=== PATIENT | male | born 1965 | race Caucasian/White ===

== ENCOUNTER 2019-01-21 18:45 | Inpatient (IN) | payer OTHER ==
[2019-01-21] MEDS ORDERED: IPRATROPIUM-ALBUTEROL 3 ML NEB INHALATION STA (19:02)
[2019-01-21] MEDS ORDERED: SODIUM CHLORIDE 0.9% 500 ML 500 ML IV STA (19:18)
[2019-01-21] MEDS ORDERED: methylPREDNISolone SOD SUCCI 125 MG/2 ML VIAL IV STA (19:18)
[2019-01-21 19:53] LABS: Basophils % (A) 0 %; Eosinophils # (A) 0.2 k/uL (0-0.7); Eosinophils % (A) 1 %; HCT 48.4 % (39.0-53.0); Lymphocytes % (A) 8 %; MCHC 33.1 g/dL (31.0-37.0); MCV 93.9 fL (80.0-100.0); Mean Platelet Volume 7.3; Monocytes # (A) 0.9 k/uL (0-1.0); Monocytes % (A) 8 %; Neutrophils # (A) 10.3 k/uL (1.3-7.7); Neutrophils % (A) 82 %; Platelet Count 227 k/uL (150-450); RBC 5.16 m/uL (4.30-5.90); RDW 12.9 % (11.5-15.5); WBC 12.6 k/uL (3.8-10.6)
[2019-01-21 20:05] LABS: ALT 43 U/L (21-72); AST 25 U/L (17-59); Albumin 4.6 g/dL (3.5-5.0); Alkaline Phosphatase 62 U/L (38-126); Anion Gap 9 mmol/L; Blood Urea Nitrogen 23 mg/dL (9-20); Calcium 10.5 mg/dL (8.4-10.2); Carbon Dioxide 25 mmol/L (22-30); Chloride 106 mmol/L (98-107); Glucose 113 mg/dL (74-99); Potassium 4.7 mmol/L (3.5-5.1); Sodium 140 mmol/L (137-145); Total Protein 7.6 g/dL (6.3-8.2)
--- NOTE | 2019-01-21 20:10 | XR ---
EXAMINATION TYPE: XR chest 2V DATE OF EXAM: 01/21/2019 COMPARISON: NONE HISTORY: Short of breath TECHNIQUE: Frontal and lateral views of the chest are obtained. FINDINGS: Heart and mediastinum are normal. Lungs are clear. Diaphragm is normal. Bony thorax appear s normal. IMPRESSION: Normal chest
[2019-01-21 20:31] LABS: Partial Thromboplastin Time 24.7 sec (22.0-30.0); Prothrombin Time 10.3 sec (9.0-12.0)
--- NOTE | 2019-01-21 20:36 | ED ---
General Adult HPI <Oz Mejias - Last Filed: 01/21/19 20:55> - General Source: patient, RN notes reviewed, old records reviewed Mode of arrival: ambulatory Limitations: no limitations <Otilio Real - Last Filed: 01/21/19 23:43> - General Chief complaint: Upper Respiratory Infection Stated complaint: poss pneumonia Time Seen by Provider: 01/21/19 18:58 - History of Present Illness Initial comments: 53-year-old male patient past medical history of renal calculi, asthma, 25 year smoking history presents to ED with approximately 3 days of sore throat, rhinitis, nonproductive cough, shortness of breath, wheezing. Patient states that initially this began with sore throat, patient then began to progress to develop more cough, congestion, sob, wheezing. Patient states that this does feel like asthma exacerbations he has had in the past. Patient has had asthma exacerbations requiring hospital and in the past, most recently in the approximately 1999. Patient does not currently have a die sinker or have any breathing treatments at home. Patient denies any chest pain abdominal pain nausea vomiting diarrhea. Patient denies all other complaints. Systemic: Pt denies fatigue, myalgia, rash. Pt denies weakness, night sweats, weight loss. Neuro: Pt denies headache, visual disturbances, syncope or pre-syncope. HEENT: Pt denies ocular discharge or irritation, otalgia, rhinorrhea, pharyngiti s or notable lymphadenopathy. Cardiopulmonary: Pt denies chest pain, heart palpitations, dyspnea on exertion. Abdominal/GI: Pt denies abdominal pain, n/v/d. : Pt denies dysuria, burning w/ urination, frequency/urgency. Denies new onset urinary or bowel incontinence. MSK: Pt denies myalgia, loss of strength or function in extremities. Neuro: Pt denies new onset weakness, paresthesias. (Otilio Real) - Related Data Home Medications Medication Instructions Recorded Confirmed Multivit-Min/FA/Lycopen/Lutein 1 tab PO DAILY 01/21/19 01/21/19 [Centrum Silver Men Tablet] Allergies Allergy/AdvReac Type Severity Reaction Status Date / Time No Known Allergies Allergy Verified 01/21/19 19:57 Review of Systems ROS Other: All systems not noted in ROS Statement are negative. <Oz Mejias - Last Filed: 01/21/19 20:55> ROS Other: All systems not noted in ROS Statement are negative. <Otilio Real - Last Filed: 01/21/19 23:43> ROS Statement: Those systems with pertinent positive or pertinent negative responses have been documented in the HPI. Past Medical History Past Medical History: Prostate Disorder History of Any Multi-Drug Resistant Organisms: None Reported Past Surgical History: No Surgical Hx Reported Past Psychological History: No Psychological Hx Reported Smoking Status: Former smoker Past Alcohol Use History: None Reported <Otilio Real - Last Filed: 01/21/19 23:43> General Exam <Oz Mejias - Last Filed: 01/21/19 20:55> Limitations: no limitations <Otilio Real - Last Filed: 01/21/19 23:43> - General Exam Comments Initial Comments: Constitutional: NAD, AOX3, Pt has pleasant affect. HEENT: NC/AT, trachea midline, neck supple, no lymphadenopathy. Posterior pharynx non erythematous, without exudates. External ears appear normal, without discharge. Mucous membranes moist. Eyes PERRLA, EOM intact. There is no scleral icterus. No pallor noted. Cardiopulmonary: RRR, no murmurs, rubs or gallops, no JVD noted. Wheezing noted in anterior and posterior og. Mildly improved but still present after breathing treatment. No peripheral edema. Abdominal exam: Abdomen soft and non-distended. Abdomen non-tender to palpation in all 4 quadrants. Bowel sounds active in LLQ. No hepatosplenomegaly. No ecchymosis Neuro: CN II-XII grossly intact. No nuchal rigidity. MSK: No posterior calf tenderness bilaterally, homans sign negative bilaterally. Posterior tibialis and radial pulse +2 bilaterally. Sensation intact in upper and lower extremities. Full active ROM in upper and lower extremities, 5/5 stregnth. (Otilio Real) Vital Signs 01/21/19 01/21/19 01/21/19 18:46 18:58 19:18 Temperature 98.7 F Pulse Rate 108 H 100 Respiratory 24 22 Rate Blood Pressure 157/91 O2 Sat by Pulse 89 L Oximetry 01/21/19 01/21/19 01/21/19 19:35 19:36 20:36 Temperature Pulse Rate 117 H 114 H 99 Respiratory 22 20 Rate Blood Pressure 138/87 143/99 O2 Sat by Pulse 90 L 93 L Oximetry Medical Decision Making - Lab Data Result diagrams: 01/21/19 19:30 01/21/19 19:30 <Oz Mejias - Last Filed: 01/21/19 20:55> - Lab Data Result diagrams: 01/21/19 19:30 01/21/19 19:30 - EKG Data -: EKG Interpreted by Me (and dr mejias) <Otilio Real - Last Filed: 01/21/19 23:43> - Medical Decision Making Patient reevaluated by myself, Dr. Mejias. Patient is having some continued wheezing however no respiratory distress at this time. Patient feels somewhat better following nebulizer treatments. Case was discussed in detail with Dr. Phepls, who will admit his patient. (Oz Mejias) 53-year-old male patient past medical history of renal calculi, asthma, 25 year smoking history presents to ED with approximately 3 days of sore throat, rhinitis, nonproductive cough, shortness of breath, wheezing. Patient states that initially this began with sore throat, patient then began to progress to develop more cough, congestion, sob, wheezing. Patient states that this does feel like asthma exacerbations he has had in the past. Patient has had asthma exacerbations requiring hospital and in the past, most recently in the approximately 1999. Patient does not currently have a die sinker or have any breathing treatments at home. Patient denies any chest pain abdominal pain nausea vomiting diarrhea. Patient denies all other complaints. Patient vital signs displayed mild tachycardia, O2 saturation in low 90's. Physical exam displayed: Wheezing noted in anterior and posterior og. Mildly improved but still present after breathing treatment. Laboratory investigations revealed mi ld cytosis of 12.6. Coagulation studies within normal limits. D-dimer negative. CMP nonimpressive. Troponin negative. BNP wnl. Influenza negative. Chest x-ray displayed no acute intrapulmonary process. EKG displayed sinus tachycardia. Patient proved moderately with breathing treatment. Patient to be admitted for asthma exacerbation. Patient placed on prophylactic azithromycin. Case discussed and patient seen by Dr. Mejias. (Otilio Real) - Lab Data Lab Results 01/21/19 01/21/19 01/21/19 Range/Units 19:30 19:30 19:30 WBC 12.6 H (3.8-10.6) k/uL RBC 5.16 (4.30-5.90) m/uL Hgb 16.0 (13.0-17.5) gm/dL Hct 48.4 (39.0-53.0) % MCV 93.9 (80.0-100.0) fL MCH 31.0 (25.0-35.0) pg MCHC 33.1 (31.0-37.0) g/dL RDW 12.9 (11.5-15.5) % Plt Count 227 (150-450) k/uL Neutrophils % 82 % Lymphocytes % 8 % Monocytes % 8 % Eosinophils % 1 % Basophils % 0 % Neutrophils # 10.3 H (1.3-7.7) k/uL Lymphocytes # 1.0 (1.0-4.8) k/uL Monocytes # 0.9 (0-1.0) k/uL Eosinophils # 0.2 (0-0.7) k/uL Basophils # 0.0 (0-0.2) k/uL PT (9.0-12.0) sec INR (<1.2) APTT (22.0-30.0) sec D-Dimer (<0.60) mg/L FEU Sodium 140 (137-145) mmol/L Potassium 4.7 (3.5-5.1) mmol/L Chloride 106 (98-107) mmol/L Carbon Dioxide 25 (22-30) mmol/L Anion Gap 9 mmol/L BUN 23 H (9-20) mg/dL Creatinine 0.75 (0.66-1.25) mg/dL Est GFR (CKD-EPI)AfAm >90 (>60 ml/min/1.73 sqM) Est GFR (CKD-EPI)NonAf >90 (>60 ml/min/1.73 sqM) Glucose 113 H (74-99) mg/dL Calcium 10.5 H (8.4-10.2) mg/dL Total Bilirubin 1.0 (0.2-1.3) mg/dL AST 25 (17-59) U/L ALT 43 (21-72) U/L Alkaline Phosphatase 62 (38-126) U/L Troponin I (0.000-0.034) ng/mL NT-Pro-B Natriuret Pep 56 pg/mL Total Protein 7.6 (6.3-8.2) g/dL Albumin 4.6 (3.5-5.0) g/dL Influenza Type A RNA (Not Detectd) Influenza Type B (PCR) (Not Detectd) 01/21/19 01/21/19 01/21/19 Range/Units 19:30 19:30 19:30 WBC (3.8-10.6) k/uL RBC (4.30-5.90) m/uL Hgb (13.0-17.5) gm/dL Hct (39.0-53.0) % MCV (80.0-100.0) fL MCH (25.0-35.0) pg MCHC (31.0-37.0) g/dL RDW (11.5-15.5) % Plt Count (150-450) k/uL Neutrophils % % Lymphocytes % % Monocytes % % Eosinophils % % Basophils % % Neutrophils # (1.3-7.7) k/uL Lymphocytes # (1.0-4.8) k/uL Monocytes # (0-1.0) k/uL Eosinophils # (0-0.7) k/uL Basophils # (0-0.2) k/uL PT 10.3 (9.0-12.0) sec INR 1.0 (<1.2) APTT 24.7 (22.0-30.0) sec D-Dimer 0.25 (<0.60) mg/L FEU Sodium (137-145) mmol/L Potassium (3.5-5.1) mmol/L Chloride (98-107) mmol/L Carbon Dioxide (22-30) mmol/L Anion Gap mmol/L BUN (9-20) mg/dL Creatinine (0.66-1.25) mg/dL Est GFR (CKD-EPI)AfAm (>60 ml/min/1.73 sqM) Est GFR (CKD-EPI)NonAf (>60 ml/min/1.73 sqM) Glucose (74-99) mg/dL Calcium (8.4-10.2) mg/dL Total Bilirubin (0.2-1.3) mg/dL AST (17-59) U/L ALT (21-72) U/L Alkaline Phosphatase (38-126) U/L Troponin I <0.012 (0.000-0.034) ng/mL NT-Pro-B Natriuret Pep pg/mL Total Protein (6.3-8.2) g/dL Albumin (3.5-5.0) g/dL Influenza Type A RNA (Not Detectd) Influenza Type B (PCR) (Not Detectd) 01/21/19 Range/Units 20:20 WBC (3.8-10.6) k/uL RBC (4.30-5.90) m/uL Hgb (13.0-17.5) gm/dL Hct (39.0-53.0) % MCV (80.0-100.0) fL MCH (25.0-35.0) pg MCHC (31.0-37.0) g/dL RDW (11.5-15.5) % Plt Count (150-450) k/uL Neutrophils % % Lymphocytes % % Monocytes % % Eosinophils % % Basophils % % Neutrophils # (1.3-7.7) k/uL Lymphocytes # (1.0-4.8) k/uL Monocytes # (0-1.0) k/uL Eosinophils # (0-0.7) k/uL Basophils # (0-0.2) k/uL PT (9.0-12.0) sec INR (<1.2) APTT (22.0-30.0) sec D-Dimer (<0.60) mg/L FEU Sodium (137-145) mmol/L Potassium (3.5-5.1) mmol/L Chloride (98-107) mmol/L Carbon Dioxide (22-30) mmol/L Anion Gap mmol/L BUN (9-20) mg/dL Creatinine (0.66-1.25) mg/dL Est GFR (CKD-EPI)AfAm (>60 ml/min/1.73 sqM) Est GFR (CKD-EPI)NonAf (>60 ml/min/1.73 sqM) Glucose (74-99) mg/dL Calcium (8.4-10.2) mg/dL Total Bilirubin (0.2-1.3) mg/dL AST (17-59) U/L ALT (21-72) U/L Alkaline Phosphatase (38-126) U/L Troponin I (0.000-0.034) ng/mL NT-Pro-B Natriuret Pep pg/mL Total Protein (6.3-8.2) g/dL Albumin (3.5-5.0) g/dL Influenza Type A RNA Not Detected (Not Detectd) Influenza Type B (PCR) Not Detected (Not Detectd) - EKG Data EKG Comments: Ventricular rate 106, MT interval 140, QRS 88, QT/QTC 314/417. Sinus tachycardia. Left axis deviation. No concern for acute ischemia. (Otilio Real) Disposition <Oz Mejias - Last Filed: 01/21/19 20:55> Is patient prescribed a controlled substance at d/c from ED?: No <Otilio Real - Last Filed: 01/21/19 23:43> Clinical Impression: Asthma exacerbation Disposition: ADMITTED IP TO THIS HOSP Condition: Serious
[2019-01-21] MEDS ORDERED: IPRATROPIUM-ALBUTEROL 3 ML NEB INHALATION PRN (21:21)
[2019-01-21] MEDS: AZITHROMYCIN 500 MG TAB PO SCH (22:00)
[2019-01-21 22:36] VITALS: BMI 28.8
[2019-01-22] MEDS: methylPREDNISolone SOD SUCCI 125 MG/2 ML VIAL IV SCH ×4 (00:24→16:55)
[2019-01-22 07:09] LABS: Glucose,Whole Blood 178 mg/dL (75-99)
[2019-01-22] MEDS: IPRATROPIUM-ALBUTEROL 3 ML NEB INHALATION SCH ×4 (08:04→19:37)
[2019-01-22] MEDS: AZITHROMYCIN 500 MG TAB PO SCH (08:44)
[2019-01-22 11:15] LABS: Glucose,Whole Blood 216 mg/dL (75-99)
[2019-01-22] MEDS: INSULIN ASPART (NovoLOG) 100 UNIT/ML VIAL SQ SCH ×3 (11:47→22:05)
--- NOTE | 2019-01-22 13:21 | P.CNPUL ---
History of Present Illness Consult date: 01/22/19 Requesting physician: Gee Cage Jr Reason for consult: dyspnea Chief complaint: Shortness of breath History of present illness: This is a very pleasant 53-year-old gentleman who follows with Dr. Cage is his primary care physician. He presented to the emergency room with initial complaints of sore throat and burning that subsequently settled into his chest over the last 2-3 days. He is quite dyspneic on minimal exertion. Some chest tightness and wheezing. Chest x-ray showed no acute pulmonary process. White count 12.6. Hemoglobin 16.0. Creatinine 0.75. Influenza screen negative. He states he did have asthma as a child and then it returned once in his 30s he had been admitted at that time. He does have chronic and ongoing tobacco dependence. He remembers being on Advair for a while after a previous admission many years ago. No current inhalers, no home oxygen. He is seen today in consultation on the regular medical floor. He is awake and alert in no acute distress. He is still somewhat bronchospastic and wheezy. Still dyspneic with conversation and minimal exertion. He is requiring oxygen at 3 L/m to maintain O2 saturations in the 90s. Initially 89% on room air. He has been initiated on DuoNeb inhalations and IV Solu-Medrol with empiric antibiotics in the form of azithromycin. Review of Systems 14 point review of system was conducted. All negative other than as mentioned in HPI. Eyes: Past Medical History Past Medical History: Prostate Disorder History of Any Multi-Drug Resistant Organisms: None Reported Past Surgical History: No Surgical Hx Reported Past Anesthesia/Blood Transfusion Reactions: No Reported Reaction Past Psychological History: No Psychological Hx Reported Smoking Status: Former smoker Past Alcohol Use History: None Reported - Past Family History Mother Family Medical History: Diabetes Mellitus Father Family Medical History: Coronary Artery Disease (CAD) Medications and Allergies Home Medications Medication Instructions Recorded Confirmed Type Multivit-Min/FA/Lycopen/Lutein 1 tab PO DAILY 01/21/19 01/21/19 History [Centrum Silver Men Tablet] Allergies Allergy/AdvReac Type Severity Reaction Status Date / Time No Known Allergies Allergy Verified 01/21/19 19:57 Physical Exam Vitals: Vital Signs Temp Pulse Pulse Resp BP BP Pulse Ox 01/22/19 11:42 92 01/22/19 11:31 88 01/22/19 08:18 88 01/22/19 08:05 84 92 L 01/22/19 06:03 98.0 F 83 20 132/85 92 L 01/21/19 22:40 99.2 F 91 22 158/82 90 L 01/21/19 22:01 98.6 F 89 18 136/92 93 L 01/21/19 20:36 99 20 143/99 93 L 01/21/19 19:36 114 H 22 138/87 90 L 01/21/19 19:35 117 H 01/21/19 19:18 100 01/21/19 18:58 22 01/21/19 18:46 98.7 F 108 H 24 157/91 89 L Intake and Output 01/21/19 01/22/19 01/22/19 22:59 06:59 14:59 Other: Voiding Method Toilet # Voids 2 Weight 102.058 kg GENERAL EXAM: 53-year-old male patient. Alert, active, comfortable in no apparent distress. On 3 L nasal cannula. HEAD: Normocephalic. EYES: Normal reaction of pupils, equal size. NOSE: Clear with pink turbinates. THROAT: No erythema or exudates. NECK: No masses, no JVD. CHEST: No chest wall deformity. LUNGS: Equal air entry with bilateral wheezing, few scattered rhonchi, diminished. CVS: S1 and S2 normal with no audible murmur, regular rhythm. ABDOMEN: No hepatosplenomegaly, normal bowel sounds, no guarding or rigidity. SPINE: No scoliosis or deformity SKIN: No rashes CENTRAL NERVOUS SYSTEM: No focal deficits, tone is normal in all 4 extremities. EXTREMITIES: There is no peripheral edema. No clubbing, no cyanosis. Peripher al pulses are intact. Results - Laboratory Findings CBC and BMP: 01/21/19 19:30 01/21/19 19:30 PT/INR, D-dimer PT 10.3 sec (9.0-12.0) 01/21/19 19:30 INR 1.0 (<1.2) 01/21/19 19:30 D-Dimer 0.25 mg/L FEU (<0.60) 01/21/19 19:30 Abnormal lab findings: Abnormal Labs 03/06/19 03/06/19 03/07/19 19:30 19:30 07:01 WBC 12.6 H Neutrophils # 10.3 H BUN 23 H Glucose 113 H POC Glucose (mg/dL) 178 H Calcium 10.5 H 01/22/19 11:13 WBC Neutrophils # BUN Glucose POC Glucose (mg/dL) 216 H Calcium - Diagnostic Findings Chest x-ray: image reviewed (No acute pulmonary process) Assessment and Plan Assessment: Impression: #1 Acute hypoxic respiratory failure secondary to an acute exacerbation of mild persistent chronic bronchial asthma and suspected acute exacerbation of chronic obstructive pulmonary disease. #2 Chronic and ongoing tobacco dependence. Plan: The patient was seen and evaluated by Dr. Aviles. Chest x-ray and labs were reviewed. We'll continue with DuoNeb inhalations, IV Solu-Medrol, empiric antibiotics in the form of azithromycin. Add Pulmicort and Perforomist inhalations twice a day. NicoDerm patch. He is educated regarding the importance of complete smoking cessation. We will increase his activity as tolerated. Titrate down the FiO2 as tolerated. We'll continue to follow make further recommendations based on his clinical status. Possible discharge in the a.m. I, the cosigning physician, performed a history & physical examination of the patient. Lungs sounds with bilateral end expiratory wheeze, few scattered rhonchi, diminished. Maintaining good O2 saturations in the 90s on 3 L/m per nasal cannula. I discussed the assessment and plan of care with my nurse practitioner, Martha Crump. I attest to the above consultation as dictated by her. Time with Patient: Greater than 30
[2019-01-22 16:45] LABS: Glucose,Whole Blood 169 mg/dL (75-99)
[2019-01-22] MEDS: FORMOTEROL FUMARATE 20 MCG/2 ML NEBU INHALATION SCH (19:37)
[2019-01-22] MEDS: BUDESONIDE 1 MG/2 ML NEBU INHALATION SCH (19:37)
[2019-01-22 20:27] LABS: Glucose,Whole Blood 183 mg/dL (75-99)
[2019-01-23] MEDS: methylPREDNISolone SOD SUCCI 125 MG/2 ML VIAL IV SCH ×3 (00:07→12:49)
[2019-01-23 07:23] LABS: Glucose,Whole Blood 150 mg/dL (75-99)
[2019-01-23] MEDS: IPRATROPIUM-ALBUTEROL 3 ML NEB INHALATION SCH ×4 (08:08→20:51)
[2019-01-23] MEDS: FORMOTEROL FUMARATE 20 MCG/2 ML NEBU INHALATION SCH ×2 (08:08→20:50)
[2019-01-23] MEDS: BUDESONIDE 1 MG/2 ML NEBU INHALATION SCH ×2 (08:08→20:50)
[2019-01-23] MEDS: INSULIN ASPART (NovoLOG) 100 UNIT/ML VIAL SQ SCH ×4 (08:38→21:02)
[2019-01-23] MEDS: AZITHROMYCIN 500 MG TAB PO SCH (08:41)
[2019-01-23 11:52] LABS: Glucose,Whole Blood 144 mg/dL (75-99)
[2019-01-23] MEDS ORDERED: MULTIVITAMINS, THERA 1 EACH TAB PO SCH (12:00)
--- NOTE | 2019-01-23 12:28 | P.PN ---
Subjective Progress Note Date: 01/23/19 Principal diagnosis: Acute hypoxic respiratory failure secondary to an acute exacerbation of COPD/asthma This is a very pleasant 53-year-old gentleman who follows with Dr. Cage is his primary care physician. He presented to the emergency room with initial complaints of sore throat and burning that subsequently settled into his chest over the last 2-3 days. He is quite dyspneic on minimal exertion. Some chest tightness and wheezing. Chest x-ray showed no acute pulmonary process. White count 12.6. Hemoglobin 16.0. Creatinine 0.75. Influenza screen negative. He states he did have asthma as a child and then it returned once in his 30s he had been admitted at that time. He does have chronic and ongoing tobacco dependence. He remembers being on Advair for a while after a previous admission many years ago. No current inhalers, no home oxygen. He is seen today in consultation on the regular medical floor. He is awake and alert in no acute distress. He is still somewhat bronchospastic and wheezy. Still dyspneic with conversation and minimal exertion. He is requiring oxygen at 3 L/m to maintain O2 saturations in the 90s. Initially 89% on room air. He has been initiated on DuoNeb inhalations and IV Solu-Medrol with empiric antibiotics in the form of azithromycin. The patient is seen today 01/23/2019 in follow-up on the regular medical floor. He is awake and alert in no acute distress. He is breathing quite a bit easier today as compared to yesterday. Still not quite back to his baseline. He is maintaining O2 saturations in the mid 90s on 2 L/m per nasal cannula. He's been afebrile. Hemodynamically stable. Blood culture reveals no growth to date. He is continued on DuoNeb inhalations, Pulmicort and Perforomist inhalations, IV Solu-Medrol, empiric Biaxin the form of azithromycin. Objective - Vital Signs Vital signs: Vital Signs Temp 98.2 F 01/23/19 05:00 Pulse 84 01/23/19 08:32 Resp 16 01/23/19 08:00 BP 103/61 01/23/19 05:00 Pulse Ox 95 01/23/19 05:00 Intake & Output 01/22/19 01/23/19 01/23/19 18:59 06:59 18:59 Intake Total 1180 Balance 1180 Intake: Oral 1180 Other: Voiding Method Toilet # Voids 2 2 - Exam GENERAL EXAM: Alert, active, comfortable in no apparent distress. HEAD: Normocephalic. EYES: Normal reaction of pupils, equal size. NOSE: Clear with pink turbinates. THROAT: No erythema or exudates. NECK: No masses, no JVD. CHEST: No chest wall deformity. LUNGS: Equal air entry with faint end expiratory wheeze bilaterally. Diminished. CVS: S1 and S2 normal with no audible murmur, regular rhythm. ABDOMEN: No hepatosplenomegaly, normal bowel sounds, no guarding or rigidity. SPINE: No scoliosis or deformity SKIN: No rashes CENTRAL NERVOUS SYSTEM: No focal deficits, tone is normal in all 4 extremities. EXTREMITIES: There is no peripheral edema. No clubbing, no cyanosis. Peripheral pulses are intact. - Labs CBC & Chem 7: 01/21/19 19:30 01/21/19 19:30 Labs: Abnormal Lab Results - Last 24 Hours (Table) 01/22/19 01/22/19 01/23/19 Range/Units 16:43 20:26 07:22 POC Glucose (mg/dL) 169 H 183 H 150 H (75-99) mg/dL 01/23/19 Range/Units 11:42 POC Glucose (mg/dL) 144 H (75-99) mg/dL Microbiology - Last 24 Hours (Table) 01/21/19 21:54 Blood Culture - Preliminary Blood No Growth after 24 hours Assessment and Plan Assessment: Impression: #1 Acute hypoxic respiratory failure secondary to an acute exacerbation of mild persistent chronic bronchial asthma and suspected acute exacerbation of chronic obstructive pulmonary disease. #2 Chronic and ongoing tobacco dependence. Plan: The patient was seen and evaluated by Dr. Aviles. He is cleared for discharge from the pulmonary standpoint. We'll convert the IV Solu-Medrol to prednisone burst and taper. Continue Symbicort and albuterol. Wean off the oxygen. He would benefit from a follow-up in our office in 1-2 weeks' time. We'll perform full pulmonary function testing to evaluate the severity of his chronic obstructive pulmonary disease. He is again encouraged regarding the importance of complete smoking cessation. He is encouraged to call sooner with any recurrence of symptoms or other questions or concerns. I, the cosigning physician, performed a history & physical examination of the patient. Lungs sounds with bilateral end expiratory wheeze, diminished. Maintaining good O2 saturations in the 90s on 2 L/m per nasal cannula. I discussed the assessment and plan of care with my nurse practitioner, Martha Crump. I attest to the above note as dictated by her.
[2019-01-23 17:05] LABS: Glucose,Whole Blood 121 mg/dL (75-99)
--- NOTE | 2019-01-23 17:48 | P.HPIM ---
History of Present Illness H&P Date: 01/22/19 Chief Complaint: Dyspnea Patient presented to the hospital lidocaine exacerbation of chronic COPD patient was unable to catch breath, having difficulty taking deep breaths, This patient is a 53-year-old male with a past medical history of asthma 25 year smoking patient did present with sore throat rhinitis nonproductive cough he has early signs of chronic obstructive lung disease secondary to smoking history was currently wheezing when I evaluated him in the patient room on the floor. He was given 2 updraft treatments in the emergency room out improvement of symptoms was started on IV steroids and IV antibiotics and short acting beta agonist treatments nebulized Review of Systems Constitutional: Reports as per HPI Cardiovascular: Reports as per HPI Respiratory: Reports congestion, Reports cough, Reports dyspnea, Reports wheezing Gastrointestinal: Reports as per HPI Genitourinary: Reports as per HPI Musculoskeletal: Reports as per HPI Integumentary: Reports as per HPI Neurological: Reports as per HPI Psychiatric: Reports as per HPI Past Medical History Past Medical History: Prostate Disorder, Respiratory Disorder History of Any Multi-Drug Resistant Organisms: None Reported Past Surgical History: No Surgical Hx Reported Past Anesthesia/Blood Transfusion Reactions: No Reported Reaction Past Psychological History: No Psychological Hx Reported Smoking Status: Former smoker Past Alcohol Use History: None Reported - Past Family History Mother Family Medical History: Diabetes Mellitus Father Family Medical History: Coronary Artery Disease (CAD) Medications and Allergies Home Medications Medication Instructions Recorded Confirmed Type Multivit-Min/FA/Lycopen/Lutein 1 tab PO DAILY 01/21/19 01/21/19 History [Centrum Silver Men Tablet] Allergies Allergy/AdvReac Type Severity Reaction Status Date / Time No Known Allergies Allergy Verified 01/21/19 19:57 Physical Exam Osteopathic Statement: *. No significant issues noted on an osteopathic structural exam other than those noted in the History and Physical/Consult. Vitals: Vital Signs Temp Pulse Pulse Resp BP Pulse Ox Pulse Ox 01/23/19 16:46 84 01/23/19 16:36 80 01/23/19 15:49 18 01/23/19 13:54 97.7 F 90 18 125/44 92 L 01/23/19 12:49 91 L 01/23/19 12:45 82 01/23/19 12:37 88 01/23/19 08:32 84 01/23/19 08:20 88 01/23/19 08:08 90 01/23/19 08:00 83 16 01/23/19 05:00 98.2 F 83 16 103/61 95 01/22/19 21:00 98.2 F 107 H 16 132/75 92 L 01/22/19 20:03 92 01/22/19 19:53 92 01/22/19 19:52 92 01/22/19 19:38 88 Pulse Ox Pulse Ox 01/23/19 16:46 01/23/19 16:36 01/23/19 15:49 01/23/19 13:54 01/23/19 12:49 91 L 88 L 01/23/19 12:45 01/23/19 12:37 01/23/19 08:32 01/23/19 08:20 01/23/19 08:08 01/23/19 08:00 01/23/19 05:00 01/22/19 21:00 01/22/19 20:03 01/22/19 19:53 01/22/19 19:52 01/22/19 19:38 Intake and Output 01/23/19 01/23/19 01/23/19 06:59 14:59 22:59 Intake Total 590 Balance 590 Intake: Oral 590 Other: Voiding Method Toilet Toilet # Voids 2 4 General: [Patient awake, alert and oriented times 3. Patient in no acute distress.] HEENT: [PERRL. EOMI. No pharyngeal erythema or exudate.] Neck: [No adenopathy.] Cardiac: [Heart regular in rate and rhythm. No S3. No S4. No clicks, rubs. No murmur.] Lungs: Diminished breath sounds bilaterally with profound expirational wheezes bilaterally Abdomen: [No mass. No organomegaly. Bowel sounds presnt and normoactive in all 4 quadrants.] Extremes: [No edema no cyanosis no claudication normal pulses] : [] Musculoskeletal: [No joint erythema, edema or tenderness.] Skin: [No rash.] Neurologic: [No lateralizing deficits. CN II - XII grossly intact.] Lymphatic: [No adenopathy.] Results CBC & Chem 7: 01/21/19 19:30 01/21/19 19:30 Labs: Abnormal Lab Results - Last 24 Hours (Table) 01/22/19 01/23/1901/23/19 Range/Units 20:26 07:22 11:42 POC Glucose (mg/dL) 183 H 150 H 144 H (75-99) mg/dL 01/23/19 Range/Units 16:59 POC Glucose (mg/dL) 121 H (75-99) mg/dL Microbiology - Last 24 Hours (Table) 01/21/19 21:54 Blood Culture - Preliminary Blood No Growth after 24 hours Thrombosis Risk Factor Assmnt - DVT/VTE Prophylaxis DVT/VTE Prophylaxis: Low risk, early ambulation encouraged - Choose All That Apply Any of the Below Risk Factors Present?: Yes Each Factor Represents 1 point: Age 41-60 years Other Risk Factors: No Thrombosis Risk Factor Assessment Total Risk Factor Score: 1 Thrombosis Risk Factor Assessment Level: Low Risk Assessment and Plan Assessment: Acute exacerbation chronic COPD IV steroids, IV antibiotics, nebulized beta agonists Consultation with pulmonary medicine We will continue to follow patient closely with anticipate discharge home and 48 hours (1) Asthma exacerbation Current Visit: Yes Status: Acute Code(s): J45.901 - UNSPECIFIED ASTHMA WITH (ACUTE) EXACERBATION SNOMED Code(s): 510975913 Time with Patient: Greater than 30
--- NOTE | 2019-01-23 17:51 | P.PN ---
Subjective Progress Note Date: 01/23/19 Principal diagnosis: Acute exacerbation of chronic asthma/COPD Patient was admitted yesterday was examined last evening had profound consolidation bilaterally with diminished breath sounds and bilateral wheezes this has improved patient was started on by mouth prednisone by a pulmonary medicine. We will reevaluate tomorrow anticipate discharge home tomorrow Objective - Vital Signs Vital signs: Vital Signs Temp 97.7 F 01/23/19 13:54 Pulse 84 01/23/19 16:46 Resp 18 01/23/19 15:49 BP 125/44 01/23/19 13:54 Pulse Ox 92 L 01/23/19 13:54 Intake & Output 01/22/19 01/23/19 01/23/19 18:59 06:59 18:59 Intake Total 1180 Balance 1180 Intake: Oral 1180 Other: Voiding Method Toilet # Voids 2 2 4 - Exam General: [Patient awake, alert and oriented times 3. Patient in no acute distress.] HEENT: [PERRL. EOMI. No pharyngeal erythema or exudate.] Neck: [No adenopathy.] Cardiac: [Heart regular in rate and rhythm. No S3. No S4. No clicks, rubs. No murmur.] Lungs: Breath sounds improved, bilateral expiration wheezes persist Abdomen: [No mass. No organomegaly. Bowel sounds presnt and normoactive in all 4 quadrants.] Extremes: [No edema no cyanosis no claudication normal pulses] : [] Musculoskeletal: [No joint erythema, edema or tenderness.] Skin: [No rash.] Neurologic: [No lateralizing deficits. CN II - XII grossly intact.] Lymphatic: [No adenopathy.] - Labs CBC & Chem 7: 01/21/19 19:30 01/21/19 19:30 Labs: Abnormal Lab Results - Last 24 Hours (Table) 01/22/19 01/23/19 01/23/19 Range/Units 20:26 07:22 11:42 POC Glucose (mg/dL) 183 H 150 H 144 H (75-99) mg/dL 01/23/19 Range/Units 16:59 POC Glucose (mg/dL) 121 H (75-99) mg/dL Microbiology - Last 24 Hours (Table) 01/21/19 21:54 Blood Culture - Preliminary Blood No Growth after 24 hours Assessment and Plan Assessment: Acute exacerbation chronic COPD IV steroids, IV antibiotics, nebulized beta agonists Consultation with pulmonary medicine We will continue to follow patient closely with anticipate discharge home and 24 hours (1) Asthma exacerbation Current Visit: Yes Status: Acute Code(s): J45.901 - UNSPECIFIED ASTHMA WITH (ACUTE) EXACERBATION SNOMED Code(s): 687293361 Time with Patient: Greater than 30
[2019-01-23 20:25] LABS: Glucose,Whole Blood 142 mg/dL (75-99)
[2019-01-23] MEDS ORDERED: MONTELUKAST 10 MG TAB PO SCH (21:00)
[2019-01-24 05:09] VITALS: BP 119/59; RESP 18; TEMP 97
[2019-01-24 07:10] LABS: Glucose,Whole Blood 115 mg/dL (75-99)
[2019-01-24] MEDS: INSULIN ASPART (NovoLOG) 100 UNIT/ML VIAL SQ SCH (07:11)
[2019-01-24] MEDS: AZITHROMYCIN 500 MG TAB PO SCH (07:17)
[2019-01-24] MEDS: BUDESONIDE 1 MG/2 ML NEBU INHALATION SCH (07:50)
[2019-01-24] MEDS: IPRATROPIUM-ALBUTEROL 3 ML NEB INHALATION SCH ×2 (07:50→11:53)
[2019-01-24] MEDS: FORMOTEROL FUMARATE 20 MCG/2 ML NEBU INHALATION SCH (07:50)
[2019-01-24] MEDS ORDERED: predniSONE 20 MG TAB PO SCH (09:00)
--- NOTE | 2019-01-24 11:47 | P.DS ---
Providers Date of admission: 01/21/19 20:54 Expected date of discharge: 01/24/19 Attending physician: Gee Cage Consults: 01/21/19 21:21 Consult Physician Stat Consulting Provider: Elroy Aviles Reason/Comments: Asthma exacerbation Do you want consulting provider notified?: Yes Primary care physician: Gee Cage - Discharge Diagnosis(es) (1) Asthma exacerbation Patient presented with excessive wheezing 3 days ago received updraft treatments 3 in the emergency room with little or no improvement Decision was made to admit patient start on IV steroids short acting beta agonists and oral antibiotics Patient started defervesce sing nicely last night and is O2 sats on room air were in the low to mid to low 90s will discharge home with today General: [Patient awake, alert and oriented times 3. Patient in no acute distress.] HEENT: [PERRL. EOMI. No pharyngeal erythema or exudate.] Neck: [No adenopathy.] Cardiac: [Heart regular in rate and rhythm. No S3. No S4. No clicks, rubs. No murmur.] Lungs: [Clear to auscultation bilaterally.] Abdomen: [No mass. No organomegaly. Bowel sounds presnt and normoactive in all 4 quadrants.] Extremes: [No edema no cyanosis no claudication normal pulses] : [] Musculoskeletal: [No joint erythema, edema or tenderness.] Skin: [No rash.] Neurologic: [No lateralizing deficits. CN II - XII grossly intact.] Lymphatic: [No adenopathy.] Current Visit: Yes Status: Acute Patient Condition at Discharge: Good Plan - Discharge Summary Discharge Rx Participant: No New Discharge Prescriptions: New Clarithromycin [Biaxin] 500 mg PO Q12HR #14 tablet Albuterol Inhaler [Ventolin Hfa Inhaler] 1 - 2 puff INHALATION RT-Q6H PRN #90 inhaler PRN Reason: Dyspnea No Action Multivit-Min/FA/Lycopen/Lutein [Centrum Silver Men Tablet] 1 tab PO DAILY Discharge Medication List Multivit-Min/FA/Lycopen/Lutein [Centrum Silver Men Tablet] 1 tab PO DAILY 01/21/19 [History] Albuterol Inhaler [Ventolin Hfa Inhaler] 1 - 2 puff INHALATION RT-Q6H PRN #90 inhaler 01/24/19 [Rx] Clarithromycin [Biaxin] 500 mg PO Q12HR #14 tablet 01/24/19 [Rx] Follow up Appointment(s)/Referral(s): Gee Cage Jr, [Primary Care Provider] - 1-2 days Patient Instructions/Handouts: Asthma (DC)
[2019-01-24 11:57] VITALS: PULSE 76
--- NOTE | 2019-01-24 12:40 | P.PN ---
Subjective Progress Note Date: 01/24/19 Principal diagnosis: acute asthma exacerbation his is a very pleasant 53-year-old gentleman who follows with Dr. Cage is his primary care physician. He presented to the emergency room with initial complaints of sore throat and burning that subsequently settled into his chest o gordon the last 2-3 days. He is quite dyspneic on minimal exertion. Some chest tightness and wheezing. Chest x-ray showed no acute pulmonary process. White count 12.6. Hemoglobin 16.0. Creatinine 0.75. Influenza screen negative. He states he did have asthma as a child and then it returned once in his 30s he had been admitted at that time. He does have chronic and ongoing tobacco dependence. He remembers being on Advair for a while after a previous admission many years ago. No current inhalers, no home oxygen. He is seen today in consultation on the regular medical floor. He is awake and alert in no acute distress. He is still somewhat bronchospastic and wheezy. Still dyspneic with conversation and minimal exertion. He is requiring oxygen at 3 L/m to maintain O2 saturations in the 90s. Initially 89% on room air. He has been initiated on DuoNeb inhalations and IV Solu-Medrol with empiric antibiotics in the form of azithromycin. The patient is seen today 01/23/2019 in follow-up on the regular medical floor. He is awake and alert in no acute distress. He is breathing quite a bit easier today as compared to yesterday. Still not quite back to his baseline. He is maintaining O2 saturations in the mid 90s on 2 L/m per nasal cannula. He's been afebrile. Hemodynamically stable. Blood culture reveals no growth to date. He is continued on DuoNeb inhalations, Pulmicort and Perforomist inhalations, IV Solu-Medrol, empiric Biaxin the form of azithromycin. Reevaluated today on 01/24/2019, patient continues to do well, feeling much better, breathing a lot easier.hardly any cough, no wheezing, no shortness of breath. Hence I have recommended that the patient could be considered for discharge home today. Objective - Vital Signs Vital signs: Vital Signs Temp 97 F L 01/24/19 05:08 Pulse 76 01/24/19 12:05 Resp 18 01/24/19 08:00 BP 119/59 01/24/19 05:08 Pulse Ox 95 01/24/19 07:10 Intake & Output 01/23/19 01/24/19 01/24/19 18:59 06:59 18:59 Other: Voiding Method Toilet Toilet # Voids 4 2 2 # Bowel Movements 0 - Exam Physical Exam: Revealed a 53-year-old white male in no distress. Head:, Atraumatic normocephalic HEENT:[Neck is supple.] [No neck masses.] [No thyromegaly.] [No JVD.] Chest: [Clear throughout, no crackles, no rhonchi, no wheezes.] Cardiac Exam: [Normal S1 and S2, no S3 gallop, no murmur.] Abdomen: [Soft, nontender, no megaly, no rebound, no guarding, normal bowel sounds.] Extremities: [No clubbing, no edema, no cyanosis.] Neurological Exam: [No focal neurologic deficit.] lymphatics: No lymphadenopathy. Skin: No rashes - Labs CBC & Chem 7: 01/21/19 19:30 01/21/19 19:30 Labs: Abnormal Lab Results - Last 24 Hours (Table) 01/23/19 01/23/19 01/24/19 Range/Units 16:59 20:24 06:57 POC Glucose (mg/dL) 121 H 142 H 115 H (75-99) mg/dL Microbiology - Last 24 Hours (Table) 01/21/19 21:54 Blood Culture - Preliminary Blood No Growth after 48 hours Assessment and Plan Assessment: impression: 1Acute hypoxic respiratory failure secondary to acute exacerbation of COPD, patient is known to have history of underlying asthma, however he has been a smoker over the years, and I believe he may have developed COPD although he had asthma as a child. 2 ongoing tobacco dependence syndrome., Patient was counseled regarding smoking cessation. Recommendation: Continue present treatment plan, give the patient prednisone tapered over the next 2 weeks, continue inhalers including albuterol, Singulair, and Symbicort. This could be done on outpatient basis, and the patient is to see me in the office within the next 2 weeks.cleared for discharge today Time with Patient: Less than 30
== END 2019-01-24 12:31 | disposition home or self-care (01) | DRG 202 ==
LOC: EC 18:45 → 4MS4W 20:54 → 3NMEDONC 01-22 17:02
PROVIDERS: ADMIT Family Medicine; ATTEND Family Medicine
DX: J45.31 Mild persistent asthma with (acute) exacerbation (principal); J96.01 Acute respiratory failure with hypoxia; J44.1 Chronic obstructive pulmonary disease with (acute) exacerbation; F17.200 Nicotine dependence, unspecified, uncomplicated; N42.9 Disorder of prostate, unspecified; Z87.442 Personal history of urinary calculi; Z71.6 Tobacco abuse counseling; Z83.3 Family history of diabetes mellitus; Z82.49 Family history of ischemic heart disease and other diseases of the circulatory system
CPT/HCPCS: 36415; 71046; 80053; 83880; 84484; 85025; 85379; 85610; 85730; 87040; 87502; 93005; 94640; 94760; 96361; 96374; 99285

== ENCOUNTER 2019-01-26 10:45 | Emergency (ER) | payer OTHER ==
[2019-01-26 10:51] VITALS: TEMP 97.8
[2019-01-26] MEDS ORDERED: IPRATROPIUM-ALBUTEROL 3 ML NEB INHALATION STA (11:01)
--- NOTE | 2019-01-26 11:10 | ED ---
SOB HPI - General Chief Complaint: Shortness of Breath Stated Complaint: sob, asthma Time Seen by Provider: 01/26/19 10:56 Source: patient, RN notes reviewed, old records reviewed Mode of arrival: ambulatory Limitations: no limitations - History of Present Illness Initial Comments: This is a 53-year-old male with a history of asthma who was hospitalized 6 days ago and released from the hospital 2 days ago after having shortness of breath he was discharged with a diagnosis of asthma exacerbation states since he was discharged he felt good that day but the following day he started developing progressively worsening shortness of breath which is extended into today. He has exertional dyspnea he denies any chest pain fevers chills or sweats. No oth er symptoms no peripheral edema. No other modifying factors MD Complaint: shortness of breath - Related Data Home Medications Medication Instructions Recorded Confirmed Multivit-Min/FA/Lycopen/Lutein 1 tab PO DAILY 01/21/19 01/26/19 [Centrum Silver Men Tablet] Previous Rx's Medication Instructions Recorded Albuterol Inhaler [Ventolin Hfa 1 - 2 puff INHALATION RT-Q6H PRN 01/24/19 Inhaler] #90 inhaler Clarithromycin [Biaxin] 500 mg PO Q12HR #14 tablet 01/24/19 Ipratropium/Albuterol Sulfate 2 puff INHALATION QID #1 inhaler 01/26/19 [Combivent Respimat Inhaler] predniSONE 20 mg PO BID #10 tab 01/26/19 Allergies Allergy/AdvReac Type Severity Reaction Status Date / Time No Known Allergies Allergy Verified 01/26/19 11:03 Review of Systems ROS Statement: Those systems with pertinent positive or pertinent negative responses have been documented in the HPI. ROS Other: All systems not noted in ROS Statement are negative. Past Medical History Past Medical History: Asthma, Prostate Disorder, Respiratory Disorder History of Any Multi-Drug Resistant Organisms: None Reported Past Surgical History: No Surgical Hx Reported Past Anesthesia/Blood Transfusion Reactions: No Reported Reaction Past Psychological History: No Psychological Hx Reported Smoking Status: Former smoker Past Alcohol Use History: None Reported Past Drug Use History: None Reported - Past Family History Mother Family Medical History: Diabetes Mellitus Father Family Medical History: Coronary Artery Disease (CAD) General Exam - General Exam Comments Initial Comments: Is a well-developed well-nourished awake alert oriented 3 male he does demonstrate audible wheezes while talking to him. Limitations: no limitations General appearance: alert, in distress Head exam: Present: atraumatic, normocephalic, normal inspection Eye exam: Present: normal appearance, PERRL, EOMI. Absent: scleral icterus, conjunctival injection, periorbital swelling ENT exam: Present: mucous membranes dry Neck exam: Present: normal inspection, full ROM, other (No stridor JVD or bruits). Absent: tenderness, meningismus, lymphadenopathy Respiratory exam: Present: wheezes (Crackles noted in addition to tachypnea), accessory muscle use, decreased breath sounds. Absent: respiratory distress, rales, rhonchi, stridor Cardiovascular Exam: Present: regular rate, normal rhythm, normal heart sounds. Absent: systolic murmur, diastolic murmur, rubs, gallop, clicks GI/Abdominal exam: Present: soft, normal bowel sounds. Absent: distended, tenderness, guarding, rebound, rigid Extremities exam: Present: normal inspection, full ROM, normal capillary refill. Absent: tenderness, pedal edema, joint swelling, calf tenderness Back exam: Present: normal inspection Neurological exam: Present: alert, oriented X3, CN II-XII intact Psychiatric exam: Present: normal affect, normal mood Skin exam: Present: warm, dry, intact, normal color. Absent: rash Course Vital Signs 01/26/19 01/26/19 01/26/19 10:48 11:11 11:22 Temperature 97.8 F Pulse Rate 86 88 84 Respiratory 26 H Rate Blood Pressure 130/67 O2 Sat by Pulse 94 L Oximetry - Reevaluation(s) Reevaluation #1: 01/26/19 12:51 Reevaluation patient reveals markedly improved breath sounds no overt wheezing heard he feels much improved he feels is busy doing went home yesterday. I did discuss lab work and x-rays with him. He would like to go home. Medical Decision Making - Medical Decision Making 12:51 PM: Patient presented with complaints of shortness of breath is been progressing since he was discharged from a hospital 2 days ago. He received IV fluids IV steroids and DuoNeb treatment with resolution of his symptoms. He will be discharged at this time he doesn't want stay in hospital at this time. He will be discharged with a Combivent inhaler instead of the albuterol he was on additionally he will be placed on a short course of steroids. He is to continue with his antibiotics. He is a follow-up with his doctor which he is planning to do. - Lab Data Result diagrams: 01/26/19 11:20 01/26/19 11:20 Lab Results 01/26/19 01/26/19 01/26/19 Range/Units 11:20 11:20 11:20 WBC 8.7 (3.8-10.6) k/uL RBC 4.92 (4.30-5.90) m/uL Hgb 15.2 (13.0-17.5) gm/dL Hct 46.3 (39.0-53.0) % MCV 94.0 (80.0-100.0) fL MCH 30.9 (25.0-35.0) pg MCHC 32.9 (31.0-37.0) g/dL RDW 13.0 (11.5-15.5) % Plt Count 284 (150-450) k/uL Neutrophils % 59 % Lymphocytes % 24 % Monocytes % 11 % Eosinophils % 4 % Basophils % 0 % Neutrophils # 5.1 (1.3-7.7) k/uL Lymphocytes # 2.1 (1.0-4.8) k/uL Monocytes # 0.9 (0-1.0) k/uL Eosinophils # 0.4 (0-0.7) k/uL Basophils # 0.0 (0-0.2) k/uL PT 10.0 (9.0-12.0) sec INR 0.9 (<1.2) APTT 26.0 (22.0-30.0) sec D-Dimer 0.20 (<0.60) mg/L FEU Sodium 137 (137-145) mmol/L Potassium 4.6 (3.5-5.1) mmol/L Chloride 105 (98-107) mmol/L Carbon Dioxide 25 (22-30) mmol/L Anion Gap 7 mmol/L BUN 30 H (9-20) mg/dL Creatinine 0.81 (0.66-1.25) mg/dL Est GFR (CKD-EPI)AfAm >90 (>60 ml/min/1.73 sqM) Est GFR (CKD-EPI)NonAf >90 (>60 ml/min/1.73 sqM) Glucose 100 H (74-99) mg/dL Calcium 10.5 H (8.4-10.2) mg/dL Magnesium 2.2 (1.6-2.3) mg/dL Total Bilirubin 0.7 (0.2-1.3) mg/dL AST 28 (17-59) U/L ALT 62 (21-72) U/L Alkaline Phosphatase 65 (38-126) U/L Troponin I (0.000-0.034) ng/mL NT-Pro-B Natriuret Pep pg/mL Total Protein 6.8 (6.3-8.2) g/dL Albumin 3.9 (3.5-5.0) g/dL 01/26/19 01/26/19 Range/Units 11:20 11:20 WBC (3.8-10.6) k/uL RBC (4.30-5.90) m/uL Hgb (13.0-17.5) gm/dL Hct (39.0-53.0) % MCV (80.0-100.0) fL MCH (25.0-35.0) pg MCHC (31.0-37.0) g/dL RDW (11.5-15.5) % Plt Count (150-450) k/uL Neutrophils % % Lymphocytes % % Monocytes % % Eosinophils % % Basophils % % Neutrophils # (1.3-7.7) k/uL Lymphocytes # (1.0-4.8) k/uL Monocytes # (0-1.0) k/uL Eosinophils # (0-0.7) k/uL Basophils # (0-0.2) k/uL PT (9.0-12.0) sec INR (<1.2) APTT (22.0-30.0) sec D-Dimer (<0.60) mg/L FEU Sodium (137-145) mmol/L Potassium (3.5-5.1) mmol/L Chloride (98-107) mmol/L Carbon Dioxide (22-30) mmol/L Anion Gap mmol/L BUN (9-20) mg/dL Creatinine (0.66-1.25) mg/dL Est GFR (CKD-EPI)AfAm (>60 ml/min/1.73 sqM) Est GFR (CKD-EPI)NonAf (>60 ml/min/1.73 sqM) Glucose (74-99) mg/dL Calcium (8.4-10.2) mg/dL Magnesium (1.6-2.3) mg/dL Total Bilirubin (0.2-1.3) mg/dL AST (17-59) U/L ALT (21-72) U/L Alkaline Phosphatase (38-126) U/L Troponin I <0.012 (0.000-0.034) ng/mL NT-Pro-B Natriuret Pep 33 pg/mL Total Protein (6.3-8.2) g/dL Albumin (3.5-5.0) g/dL - EKG Data -: EKG Interpreted by Me (EKG shows normal sinus rhythm a 78. Interval 146 QRS duration 70 QT since ) - Radiology Data Radiology results: report reviewed (I did review the imaging and report no acute findings.), image reviewed Disposition Clinical Impression: Asthma with exacerbation, Bronchospasm, acute Disposition: HOME SELF-CARE Condition: Good Instructions (If sedation given, give patient instructions): Asthma (ED), Bronchospasm (ED) Prescriptions: Ipratropium/Albuterol Sulfate [Combivent Respimat Inhaler] 2 puff INHALATION QID #1 inhaler predniSONE 20 mg PO BID #10 tab Is patient prescribed a controlled substance at d/c from ED?: No Referrals: Gee Cage Jr, [Primary Care Provider] - 1-2 days
[2019-01-26 11:31] LABS: Basophils % (A) 0 %; Eosinophils # (A) 0.4 k/uL (0-0.7); Eosinophils % (A) 4 %; HCT 46.3 % (39.0-53.0); HGB 15.2 gm/dL (13.0-17.5); Lymphocytes # (A) 2.1 k/uL (1.0-4.8); Lymphocytes % (A) 24 %; MCH 30.9 pg (25.0-35.0); MCHC 32.9 g/dL (31.0-37.0); Mean Platelet Volume 6.4; Monocytes # (A) 0.9 k/uL (0-1.0); Monocytes % (A) 11 %; Neutrophils # (A) 5.1 k/uL (1.3-7.7); Neutrophils % (A) 59 %; Platelet Count 284 k/uL (150-450); RBC 4.92 m/uL (4.30-5.90); WBC 8.7 k/uL (3.8-10.6)
--- NOTE | 2019-01-26 11:33 | XR ---
EXAMINATION TYPE: XR chest 2V DATE OF EXAM: 01/26/2019 COMPARISON: Chest x-ray from 5 days ago. HISTORY: Dyspnea. TECHNIQUE: Frontal and lateral views of the chest are obtained. FINDINGS: Underlying emphysematous change is not excluded on lateral view with flattened hemidiaphrag ms and increased retrosternal airspace. There is no focal air space opacity, pleural effusion, or pne umothorax seen. The cardiac silhouette size is within normal limits. The osseous structures are in tact. IMPRESSION: No suspicious acute pulmonary process. No significant change from prior.
[2019-01-26 11:40] LABS: ALT 62 U/L (21-72); AST 28 U/L (17-59); Albumin 3.9 g/dL (3.5-5.0); Alkaline Phosphatase 65 U/L (38-126); Anion Gap 7 mmol/L; Blood Urea Nitrogen 30 mg/dL (9-20); Calcium 10.5 mg/dL (8.4-10.2); Carbon Dioxide 25 mmol/L (22-30); Chloride 105 mmol/L (98-107); Glucose 100 mg/dL (74-99); Magnesium 2.2 mg/dL (1.6-2.3); Potassium 4.6 mmol/L (3.5-5.1); Sodium 137 mmol/L (137-145); Total Bilirubin 0.7 mg/dL (0.2-1.3); Total Protein 6.8 g/dL (6.3-8.2)
[2019-01-26 11:46] LABS: D-Dimer 0.2 mg/L FEU (<0.60); INR 0.9 (<1.2)
[2019-01-26 13:24] VITALS: BP 131/99; PULSE 65; RESP 20
== END 2019-01-26 13:24 | disposition home or self-care (01) ==
LOC: EC 10:45
DX: J45.901 Unspecified asthma with (acute) exacerbation (principal); Z79.51 Long term (current) use of inhaled steroids; Z79.899 Other long term (current) drug therapy; Z87.891 Personal history of nicotine dependence
CPT/HCPCS: 36415; 71046; 80053; 83735; 83880; 84484; 85025; 85379; 85610; 85730; 93005; 94640; 99285

== ENCOUNTER 2021-03-05 12:49 | Emergency (ER) | payer OTHER ==
[2021-03-05 12:57] VITALS: RESP 18; TEMP 97.9
[2021-03-05] MEDS ORDERED: SODIUM CHLORIDE 0.9% 1,000 ML IV STA (13:10)
--- NOTE | 2021-03-05 13:15 | ED ---
General Adult HPI - General Chief complaint: Abdominal Pain Stated complaint: Abd Pain Time Seen by Provider: 03/05/21 13:03 Source: patient, RN notes reviewed, old records reviewed Limitations: no limitations - History of Present Illness Initial comments: 55 yo female presenting for evaluation of left flank pain and left-sided abdominal pain which is been present for the past one week. Patient believes this may be related to constipation as he's had very small firm stool output for the past week versus kidney stone. He does have history of any stone. He denies hematuria or dysuria. Denies fever. Denies nausea vomiting. Denies chest pain or dyspnea. - Related Data Home Medications Medication Instructions Recorded Confirmed Fexofenadine/Pseudoephedrine 1 tab PO DAILY 03/05/21 03/05/21 [Ami-D 24 Hour Tablet] Previous Rx's Medication Instructions Recorded Cephalexin [Keflex] 500 mg PO Q12HR #20 cap 03/05/21 HYDROcodone/APAP 5-325MG [[place] 1 tab PO Q6HR PRN #12 tab 03/05/21 5-325] Ibuprofen [Motrin] 600 mg PO Q8HR PRN #24 tab 03/05/21 Tamsulosin [Flomax] 0.4 mg PO DAILY #7 cap 03/05/21 Allergies Allergy/AdvReac Type Severity Reaction Status Date / Time No Known Allergies Allergy Verified 03/05/21 14:17 Review of Systems ROS Statement: Those systems with pertinent positive or pertinent negative responses have been documented in the HPI. ROS Other: All systems not noted in ROS Statement are negative. Past Medical History Past Medical History: Asthma, Prostate Disorder, Respiratory Disorder History of Any Multi-Drug Resistant Organisms: None Reported Past Surgical History: No Surgical Hx Reported Past Anesthesia/Blood Transfusion Reactions: No Reported Reaction Past Psychological History: No Psychological Hx Reported Smoking Status: Current some day smoker Past Alcohol Use History: None Reported Past Drug Use History: None Reported - Past Family History Mother Family Medical History: Diabetes Mellitus Father Family Medical History: Coronary Artery Disease (CAD) General Exam Limitations: no limitations General appearance: alert, in no apparent distress Head exam: Present: atraumatic, normocephalic Eye exam: Present: normal appearance, PERRL ENT exam: Present: normal exam Neck exam: Present: normal inspection. Absent: tenderness, meningismus Respiratory exam: Present: normal lung sounds bilaterally. Absent: respiratory distress, wheezes Cardiovascular Exam: Present: regular rate, normal rhythm GI/Abdominal exam: Present: soft, tenderness (Left mid abdominal tenderness to palpation, no rebound or guarding). Absent: distended, guarding, rebound Extremities exam: Present: normal inspection, normal capillary refill. Absent: pedal edema, calf tenderness Back exam: Absent: CVA tenderness (R), CVA tenderness (L) Neurological exam: Present: alert, oriented X3, CN II-XII intact. Absent: motor sensory deficit Psychiatric exam: Present: normal affect, normal mood Skin exam: Present: warm, dry, intact. Absent: cyanosis, diaphoretic Course Vital Signs 03/05/21 12:53 Temperature 97.9 F Pulse Rate 82 Respiratory 18 Rate Blood Pressure 170/83 O2 Sat by Pulse 98 Oximetry Medical Decision Making - Medical Decision Making 55-year-old male with 1 week of left-sided abdominal pain and flank pain history of kidney stones. Workup is initiated. He has a normal CBC, normal CMP, urinalysis showing microscopic hematuria with rare bacteria. Urine culture pen ding. CT is performed which shows obstructing stone in the left ureter and has second obstructing stone at the UVJ measuring 9 mm and 7 mm. I did discuss case with Dr. Samra urias for urology, who can evaluate the patient on an outpatient basis next week. Patient is given strict return parameters including worsening pain, fever, vomiting. He did not require any pain medication the emergency department symptoms have been ongoing for approximately one week and will likely require intervention. - Lab Data Result diagrams: 03/05/21 13:40 03/05/21 13:40 Lab Results 03/05/21 03/05/21 03/05/21 Range/Units 13:40 13:40 13:40 WBC 9.8 (3.8-10.6) k/uL RBC 4.79 (4.30-5.90) m/uL Hgb 15.5 (13.0-17.5) gm/dL Hct 44.1 (39.0-53.0) % MCV 92.0 (80.0-100.0) fL MCH 32.3 (25.0-35.0) pg MCHC 35.1 (31.0-37.0) g/dL RDW 12.3 (11.5-15.5) % Plt Count 219 (150-450) k/uL MPV 7.4 Neutrophils % 71 % Lymphocytes % 15 % Monocytes % 10 % Eosinophils % 2 % Basophils % 0 % Neutrophils # 7.0 (1.3-7.7) k/uL Lymphocytes # 1.5 (1.0-4.8) k/uL Monocytes # 1.0 (0-1.0) k/uL Eosinophils # 0.2 (0-0.7) k/uL Basophils # 0.0 (0-0.2) k/uL PT 10.0 (9.0-12.0) sec INR 0.9 (<1.2) APTT 24.8 (22.0-30.0) sec Sodium 138 (137-145) mmol/L Potassium 4.5 (3.5-5.1) mmol/L Chloride 107 (98-107) mmol/L Carbon Dioxide 27 (22-30) mmol/L Anion Gap 4 mmol/L BUN 21 H (9-20) mg/dL Creatinine 0.99 (0.66-1.25) mg/dL Est GFR (CKD-EPI)AfAm >90 (>60 ml/min/1.73 sqM) Est GFR (CKD-EPI)NonAf 84 (>60 ml/min/1.73 sqM) Glucose 104 H (74-99) mg/dL Calcium 10.2 (8.4-10.2) mg/dL Total Bilirubin 0.5 (0.2-1.3) mg/dL AST 30 (17-59) U/L ALT 29 (4-49) U/L Alkaline Phosphatase 66 (38-126) U/L Total Protein 6.8 (6.3-8.2) g/dL Albumin 4.0 (3.5-5.0) g/dL Amylase 54 (30-110) U/L Lipase 75 (23-300) U/L Urine Color Urine Appearance (Clear) Urine pH (5.0-8.0) Ur Specific [place] (1.001-1.035) Urine Protein (Negative) Urine Glucose (UA) (Negative) Urine Ketones (Negative) Urine Blood (Negative) Urine Nitrite (Negative) Urine Bilirubin (Negative) Urine Urobilinogen (<2.0) mg/dL Ur Leukocyte Esterase (Negative) Urine RBC (0-5) /hpf Urine WBC (0-5) /hpf Urine Bacteria (None) /hpf Urine Mucus (None) /hpf Urine Yeast (Budding) (None) /hpf 03/05/21 Range/Units 14:40 WBC (3.8-10.6) k/uL RBC (4.30-5.90) m/uL Hgb (13.0-17.5) gm/dL Hct (39.0-53.0) % MCV (80.0-100.0) fL MCH (25.0-35.0) pg MCHC (31.0-37.0) g/dL RDW (11.5-15.5) % Plt Count (150-450) k/uL MPV Neutrophils % % Lymphocytes % % Monocytes % % Eosinophils % % Basophils % % Neutrophils # (1.3-7.7) k/uL Lymphocytes # (1.0-4.8) k/uL Monocytes # (0-1.0) k/uL Eosinophils # (0-0.7) k/uL Basophils # (0-0.2) k/uL PT (9.0-12.0) sec INR (<1.2) APTT (22.0-30.0) sec Sodium (137-145) mmol/L Potassium (3.5-5.1) mmol/L Chloride (98-107) mmol/L Carbon Dioxide (22-30) mmol/L Anion Gap mmol/L BUN (9-20) mg/dL Creatinine (0.66-1.25) mg/dL Est GFR (CKD-EPI)AfAm (>60 ml/min/1.73 sqM) Est GFR (CKD-EPI)NonAf (>60 ml/min/1.73 sqM) Glucose (74-99) mg/dL Calcium (8.4-10.2) mg/dL Total Bilirubin (0.2-1.3) mg/dL AST (17-59) U/L ALT (4-49) U/L Alkaline Phosphatase (38-126) U/L Total Protein (6.3-8.2) g/dL Albumin (3.5-5.0) g/dL Amylase (30-110) U/L Lipase (23-300) U/L Urine Color Yellow Urine Appearance Clear (Clear) Urine pH 5.5 (5.0-8.0) Ur Specific [place] 1.014 (1.001-1.035) Urine Protein Trace H (Negative) Urine Glucose (UA) Negative (Negative) Urine Ketones Negative (Negative) Urine Blood Large H (Negative) Urine Nitrite Negative (Negative) Urine Bilirubin Negative (Negative) Urine Urobilinogen <2.0 (<2.0) mg/dL Ur Leukocyte Esterase Trace H (Negative) Urine RBC 148 H (0-5) /hpf Urine WBC 9 H (0-5) /hpf Urine Bacteria Rare H (None) /hpf Urine Mucus Rare H (None) /hpf Urine Yeast (Budding) Occasional H (None) /hpf Disposition Clinical Impression: Calculus of kidney, Renal colic on left side, Hydronephrosis Disposition: HOME SELF-CARE Condition: Good Instructions (If sedation given, give patient instructions): Renal Colic (ED), Kidney Stones (ED) Prescriptions: Tamsulosin [Flomax] 0.4 mg PO DAILY #7 cap Cephalexin [Keflex] 500 mg PO Q12HR #20 cap Ibuprofen [Motrin] 600 mg PO Q8HR PRN #24 tab PRN Reason: Pain HYDROcodone/APAP 5-325MG [[place] 5-325] 1 tab PO Q6HR PRN #12 tab PRN Reason: Pain Is patient prescribed a controlled substance at d/c from ED?: No Referrals: Gee Cage Jr, DO [Primary Care Provider] - 1-2 days Romaine Cabrales MD [STAFF PHYSICIAN] - 1-2 days Time of Disposition: 14:54
--- NOTE | 2021-03-05 14:00 | XR ---
EXAMINATION TYPE: XR KUB DATE OF EXAM: 03/05/2021 1:54 PM CLINICAL HISTORY: Abdominal pain. TECHNIQUE: Two Upright KUB images of the abdomen are obtained. COMPARISON: CT abdomen and pelvis April 20, 2015. FINDINGS: Gas seen in nondistended stomach bubble. Some paucity of bowel gas. Visualize gas seen in n ondistended small and large bowel loops. Persistent roughly 5 mm right renal stone mid to lower pole level superior L3 level. No free air. Calcified right pelvic phleboliths. Lung bases remain clear. So me multilevel spurring and slight scoliotic curvature in the visualized spine IMPRESSION: Overall nonspecific but strongly favor nonobstructive bowel gas pattern .
[2021-03-05 14:01] LABS: Basophils % (A) 0 %; Eosinophils # (A) 0.2 k/uL (0-0.7); Eosinophils % (A) 2 %; HCT 44.1 % (39.0-53.0); HGB 15.5 gm/dL (13.0-17.5); Lymphocytes # (A) 1.5 k/uL (1.0-4.8); Lymphocytes % (A) 15 %; MCH 32.3 pg (25.0-35.0); MCHC 35.1 g/dL (31.0-37.0); Mean Platelet Volume 7.4; Monocytes % (A) 10 %; Neutrophils % (A) 71 %; Platelet Count 219 k/uL (150-450); RBC 4.79 m/uL (4.30-5.90); RDW 12.3 % (11.5-15.5); WBC 9.8 k/uL (3.8-10.6)
[2021-03-05 14:08] LABS: ALT 29 U/L (4-49); AST 30 U/L (17-59); African American GFR (CKD) >90 (>60 ml/min/1.73 sqM); Alkaline Phosphatase 66 U/L (38-126); Amylase 54 U/L (30-110); Anion Gap 4 mmol/L; Blood Urea Nitrogen 21 mg/dL (9-20); Calcium 10.2 mg/dL (8.4-10.2); Carbon Dioxide 27 mmol/L (22-30); Chloride 107 mmol/L (98-107); Glucose 104 mg/dL (74-99); Lipase 75 U/L (23-300); Non-African American GFR(CKD) 84 (>60 ml/min/1.73 sqM); Potassium 4.5 mmol/L (3.5-5.1); Sodium 138 mmol/L (137-145); Total Bilirubin 0.5 mg/dL (0.2-1.3); Total Protein 6.8 g/dL (6.3-8.2)
[2021-03-05 14:11] LABS: INR 0.9 (<1.2); Partial Thromboplastin Time 24.8 sec (22.0-30.0)
[2021-03-05 14:47] LABS: Appearance,Urine Clear (Clear); Bacteria,Urine Rare /hpf; Bilirubin,Urine Negative (Negative); Blood,Urine Large (Negative); Budding Yeast,Urine Occasional /hpf; Color,Urine Yellow; Glucose,Urine (UA) Negative (Negative); Ketones,Urine Negative (Negative); Leukocyte Esterase,Urine Trace (Negative); Mucus,Urine Rare /hpf; Nitrite,Urine Negative (Negative); PH, Urine 5.5 (5.0-8.0); Protein,Urine Trace (Negative); RBC,Urine 148 /hpf (0-5); Specific Gravity,Urine 1.014 (1.001-1.035); Urobilinogen,Urine <2.0 mg/dL (<2.0); WBC,Urine 9 /hpf (0-5)
--- NOTE | 2021-03-05 14:47 | CT ---
EXAMINATION TYPE: CT abdomen pelvis wo con DATE OF EXAM: 03/05/2021 COMPARISON: 04/20/2015 HISTORY: Left sided abdominal pain. CT DLP: 877.1 mGycm Automated exposure control for dose reduction was used. Images obtained from the diaphragm to the floor the pelvis without contrast. The lung bases are clear. There is no pleural effusion. Heart size is normal. There is no pericardial effusion. Liver spleen stomach pancreas gallbladder appear normal. The bile ducts are not dilated. There is no adrenal mass. Kidneys have normal size. There is left-sided hydronephrosis and hydrourete r. There is mild left. The ureteral edema. There is 7 mm obstructing calculus in the lower left urete r. There is also 9 mm calculus in the urinary bladder at the ureterovesical junction. Is not clear if this is entirely within the bladder. The prostate is enlarged and measures 6.8 cm. There is no ingui nal hernia. There is contour bulging of the anterior right side urinary bladder measuring 1.7 cm and consistent with bladder diverticulum. There is no free fluid in the pelvis. There is no mesenteric edema. There is no ascites or free air. Appendix appears normal. There is no evidence of a bowel obstruction. There are calculi in the right kidney in the lower pole that measure up to 8 mm. There are 1 to 2 mm calculi lower pole left kidney. The lumbar vertebra have fairly normal alignment. There is multilevel mild spondylotic changes. There is no lumbar compression fracture. The bony pelvis is intact. Hip joints are intact. Facet joints ar e intact. IMPRESSION: Obstructing calculi in the distal left ureter at the ureterovesical junction and also in the lower ur eter. Left-sided hydronephrosis and hydroureter. Bladder diverticulum increased compared to old exam. Obstruction increased compared to old exam which showed smaller calculi. Renal calculi increased in size compared to old exam. Bilateral renal multiple calculi.
[2021-03-05] MEDS ORDERED: HYDROmorphone 0.5 MG/0.5 ML SYRINGE IVP STA (14:59)
[2021-03-05] MEDS ORDERED: KETOROLAC 15 MG/ML 1 ML VIAL IVP STA (14:59)
[2021-03-05 15:40] VITALS: BP 127/97; PULSE 84
== END 2021-03-05 15:41 | disposition home or self-care (01) ==
LOC: EC 12:49
DX: N13.2 Hydronephrosis with renal and ureteral calculous obstruction (principal); F17.200 Nicotine dependence, unspecified, uncomplicated; Z79.899 Other long term (current) drug therapy
CPT/HCPCS: 36415; 80053; 82150; 83690; 85025; 85610; 85730; 81001; 74018; 74176; 99285; 96374; 96375; 96361 ×2; J1885; J1170

== ENCOUNTER → 2021-03-13 | Outpatient (CLI) | payer OTHER ==
[2021-03-13 14:57] LABS: Appearance,Urine Clear (Clear); Bilirubin,Urine Negative (Negative); Blood,Urine Moderate (Negative); Color,Urine Yellow; Glucose,Urine (UA) Negative (Negative); Hyaline Casts,Urine 1 /lpf (0-2); Ketones,Urine Negative (Negative); Leukocyte Esterase,Urine Negative (Negative); Mucus,Urine Occasional /hpf; Nitrite,Urine Negative (Negative); PH, Urine 5.5 (5.0-8.0); Protein,Urine Negative (Negative); RBC,Urine >182 /hpf (0-5); Squamous Epithelial Cell,Urine <1 /hpf (0-4); Urobilinogen,Urine <2.0 mg/dL (<2.0); WBC,Urine 4 /hpf (0-5)
== END | disposition home or self-care (01) ==
LOC: LABPAT 13:31
PROVIDERS: ATTEND Urology
DX: Z01.818 Encounter for other preprocedural examination (principal); R31.29 Other microscopic hematuria; N20.1 Calculus of ureter; N21.0 Calculus in bladder
CPT/HCPCS: 81001; 87086

== ENCOUNTER 2021-03-24 14:57 | Day surgery (SDC) | payer OTHER ==
[2021-03-22 12:15] VITALS: BMI 29.7
--- NOTE | 2021-03-24 14:05 | P.HPIHPCON ---
History of Present Illness H&P Date: 03/24/21 Chief Complaint: Left-sided ureteral, bladder stone 65-year-old male with history of left-sided ureteral stone, and a 1 cm bladder stone. Of note he has also history of BPH, but noticed symptoms improvement following initiation of Flomax. I reviewed his CT scan with him. Discussed with him there is a 1 cm bladder stone, and 2 distal ureteral stones. Discussed with him the option of doing a cystolitholapaxy, and ureteroscopy to address his ureteral stone. Discussed with him the risk which includes but not limited to bleeding, infection, injury to ureter, injury to the bladder. Discussed also with him risk from anesthesia. He understood all the risk and agreed to proceed with cystoscopy, cystolitholapaxy, left ureteroscopy, holmium laser lithotripsy, stone basketing and stent placement Consent for Procedure: I have explained the operation/procedure to the patient, including the risks, benefits, side effects, alternative therapies (including not receiving the proposed treatment or service), the likelihood of the patient achieving his/her goals, and potential recuperation problems for the procedure/sedation/analgesia, as well as any blood products, if indicated. I also explained to the patient the risks, benefits and side effects of the alternatives, as well as the risks related to not receiving the proposed procedure, care, treatment, or services. Past Medical History Past Medical History: Asthma, Prostate Disorder Additional Past Medical History / Comment(s): kidney stones History of Any Multi-Drug Resistant Organisms: None Reported Past Surgical History: No Surgical Hx Reported Past Anesthesia/Blood Transfusion Reactions: No Reported Reaction Additional Past Anesthesia/Blood Transfusion Reaction / Comment(s): has never had anesthesia Smoking Status: Current every day smoker - Past Family History Mother Family Medical History: Diabetes Mellitus Father Family Medical History: Coronary Artery Disease (CAD) Medications and Allergies Home Medications Medication Instructions Recorded Confirmed Type Fexofenadine/Pseudoephedrine 1 tab PO DAILY 03/05/21 03/22/21 History [Ami-D 24 Hour Tablet] HYDROcodone/APAP 5-325MG [[place] 1 tab PO Q6HR PRN #12 tab 03/05/21 03/22/21 Rx 5-325] Ibuprofen [Motrin] 600 mg PO Q8HR PRN #24 tab 03/05/21 03/22/21 Rx Tamsulosin [Flomax] 0.4 mg PO DAILY #7 cap 03/05/21 03/22/21 Rx Allergies Allergy/AdvReac Type Severity Reaction Status Date / Time No Known Allergies Allergy Verified 03/22/21 12:05 Surgical - Exam - General no distress, no pain - Eyes PERRL, normal ocular movement - ENT normal nares, normal mucosa - Respiratory normal expansion, normal respiratory effort Assessment and Plan Assessment: 55-year-old male with history of bladder stone, distal ureteral stoneX2 Plan: cystoscopy, cystolitholapaxy, left ureteroscopy, holmium laser lithotripsy, stone basketing and stent placement
[~2021-03-24 14:57] MED LIST: DEXAMETHASONE SOD PHOSPHATE 4 MG/ML 1 ML VIAL IV ONE; HYDROmorphone 0.5 MG/0.5 ML SYRINGE IVP PRN; LACTATED RINGERS 1,000 ML IV SCH; MIDAZOLAM 2 MG/2 ML VIAL IV PRN; ONDANSETRON 4 MG/2 ML VIAL IVP ONE; SCOPOLAMINE 1.5MG/72HR PATCH TRANSDERM ONE
[2021-03-24] MEDS ORDERED: LACTATED RINGERS 1,000 ML IV ONE (15:30)
--- NOTE | 2021-03-24 15:32 | XR ---
EXAMINATION TYPE: XR KUB DATE OF EXAM: 03/24/2021 COMPARISON: 03/05/2021 INDICATION: Renal stones TECHNIQUE: Single view abdomen supine view FINDINGS: There is a normal bowel gas pattern. Psoas margins are normal. No organomegaly is present. Couple punctate calcifications at the inferior pole of the left kidney. This could be within fecal de bris. At the inferior pole right kidney is a 0.9 cm calcification better visualized than comparison. Punctate calcification not excluded within the upper pole. This could be within fecal debris. IMPRESSION: 1. Inferior pole right renal stone.
[2021-03-24] MEDS ORDERED: ALBUTEROL INHALER 60 PUFF/8 GM INHALER (MHU) INHALATION ONE (16:43)
[2021-03-24] MEDS ORDERED: LIDOCAINE 1% INJ 10MG/ML (20 ML MDV) ONE (16:43)
[2021-03-24] MEDS ORDERED: PROPOFOL 10 MG/ML 20 ML VIAL IV ONE (16:43)
[2021-03-24] MEDS ORDERED: MIDAZOLAM 2 MG/2 ML VIAL ONE (16:43)
[2021-03-24] MEDS ORDERED: fentaNYL (PF) 50 MCG/ML 2 ML AMP ONE (16:43)
[2021-03-24] MEDS ORDERED: SUCCINYLCHOLINE CHLORIDE 100 MG/5 ML SYR IV ONE (16:43)
[2021-03-24] MEDS ORDERED: IOPAMIDOL-370 50ML BTL MISCELLANE ONE (17:18)
--- NOTE | 2021-03-24 17:55 | P.OP ---
Date of Procedure: 03/24/21 Preoperative Diagnosis: Left ureteral stone, bladder stone Postoperative Diagnosis: Same Procedure(s) Performed: Cystoscopy, left ureteroscopy, holmium laser lithotripsy, stone basketing, retrograde pyelogram and stent placement. Cystolitholapaxy( <2.5 cm) Implants: 6-Serbian by 28 cm stent left on a string Anesthesia: GERARD Surgeon: Romaine Cabrales Estimated Blood Loss (ml): 20 Pathology: other (bladder stone, left ureteral stone) Condition: stable Disposition: PACU Indications for Procedure: 65-year-old male with history of left-sided ureteral stone, and a 1 cm bladder stone. Of note he has also history of BPH, but noticed symptoms improvement fo llowing initiation of Flomax. I reviewed his CT scan with him. Discussed with him there is a 1 cm bladder stone, and 2 distal ureteral stones. Discussed with him the option of doing a cystolitholapaxy, and ureteroscopy to address his ureteral stone. Discussed with him the risk which includes but not limited to bleeding, infection, injury to ureter, injury to the bladder. Discussed also with him risk from anesthesia. He understood all the risk and agreed to proceed with cystoscopy, cystolitholapaxy, left ureteroscopy, holmium laser lithotripsy, stone basketing and stent placement Operative Findings: Left distal ureteral stone, large bladder stone Description of Procedure: Patient was brought to the operating room, general anesthesia was induced. He was prepped and draped in sterile fashion and placed in a dorsal lithotomy position cystoscopy fitted with 21-Serbian sheath was inserted per urethra, cystoscopy was performed which showed large bladder stone. Of note the bladder was heavily trabeculated patient had a significantly enlarged median lobe with intravesical extension. Attention was then carried to the left ureteral orifice which was intubated with a sensor wire. Next a cystoscope was withdrawn and a semirigid ureteroscope was inserted per urethra, the ureteroscope was advanced up the left ureteral orifice and up into the distal ureter. The stone was encountered in the distal ureter. Using the holmium laser the stone was fragmented into small fragments, small fragments were removed using the stone basket and sent for analysis. At this time the ureteroscope was advanced all the way up to the UPJ without any finding of additional stones, retrograde Polygram was performed through the ureteroscope which showed no filling defects within the kidney. Of note there was mild hydronephrosis. Pullback ureteroscopy was performed which showed no injury to the ureter or any ureteral fragments Of note there was some ureteral edema at the site of the stone. Next the ureteroscope was withdrawn and the cystoscope was reinserted. Using the holmium laser the bladder stone was fragmented into small fragments, the stone fragments were irrigated out and sent to pathology. Repeat cystoscopy showed no additional stones within the bladder. But of note there was some prosthetic back bleeding. Next a ureteral stent was advanced over the wire, the proximal curl was visualized on fluoroscopy and distal curl was visualized and cystoscope the string was left on the stent and taped to the patient penis. 20-Serbian Ortega was placed. Patient was awakened from anesthesia and taken to recovery in stable condition
[2021-03-24 18:07] VITALS: TEMP 97
[2021-03-24 18:16] VITALS: RESP 16
[2021-03-24] MEDS ORDERED: KETOROLAC 15 MG/ML 1 ML VIAL IVP ONE (18:35)
[2021-03-24 19:03] VITALS: BP 131/83; PULSE 78
--- NOTE | 2021-03-25 07:42 | FL ---
Fluoroscopy INDICATION: Pain FINDINGS: Fluoroscopy time: 42 seconds. Images obtained: 1. IMPRESSIONS: 1. Documentation of fluoroscopy.
== END 2021-03-24 19:17 | disposition home or self-care (01) ==
LOC: OR 14:57
PROVIDERS: ATTEND Urology
DX: N13.2 Hydronephrosis with renal and ureteral calculous obstruction (principal); J45.909 Unspecified asthma, uncomplicated; F17.210 Nicotine dependence, cigarettes, uncomplicated; Z87.442 Personal history of urinary calculi; Z83.3 Family history of diabetes mellitus; Z82.49 Family history of ischemic heart disease and other diseases of the circulatory system; Z79.899 Other long term (current) drug therapy
CPT/HCPCS: 82365; 74420; 74018; 52356; 52318; C2625; C1758; C1769; J2250; J1100; J0690; J2405; J2001; J3010; J1885; J0330; J2704; Q9967

== ENCOUNTER 2021-03-26 10:16 | Emergency (ER) | payer OTHER ==
[2021-03-26 10:23] VITALS: TEMP 98.2
[2021-03-26] MEDS ORDERED: KETOROLAC 15 MG/ML 1 ML VIAL IVP STA (10:43)
[2021-03-26] MEDS ORDERED: SODIUM CHLORIDE 0.9% 1,000 ML IV STA (10:43)
--- NOTE | 2021-03-26 11:05 | ED ---
General Adult HPI - General Chief complaint: Abdominal Pain Stated complaint: Post OP/Abd Pain Time Seen by Provider: 03/26/21 10:26 Source: patient Mode of arrival: ambulatory Limitations: no limitations - History of Present Illness Initial comments: 55-year-old male with a past medical history of asthma presents to the emergency room for a chief complaint of left-sided abdominal pain. Patient reports that he had 2 kidney stones removed on Saturday. Patient states that since then the pain has been worse than before the surgery. Patient states he did speak with a urologist who stated he could remove his Ortega catheter but this did not seem to help. Patient is experiencing hematuria which she was told was normal after the surgery. Patient denies back pain.Patient has no other complaints at this time including shortness of breath, chest pain, nausea or vomiting, headache, or visual changes. - Related Data Home Medications Medication Instructions Recorded Confirmed Fexofenadine/Pseudoephedrine 1 tab PO DAILY PRN 03/05/21 03/26/21 [Ami-D 24 Hour Tablet] Previous Rx's Medication Instructions Recorded HYDROcodone/APAP 5-325MG [Waucoma 1 tab PO Q6HR PRN #12 tab 03/05/21 5-325] Tamsulosin [Flomax] 0.4 mg PO DAILY #7 cap 03/05/21 Ibuprofen 600 mg PO Q6H PRN #30 tab 03/24/21 Ciprofloxacin HCl [Cipro] 500 mg PO Q12H 7 Days #14 tab 03/26/21 Allergies Allergy/AdvReac Type Severity Reaction Status Date / Time No Known Allergies Allergy Verified 03/26/21 11:28 Review of Systems ROS Statement: Those systems with pertinent positive or pertinent negative responses have been documented in the HPI. ROS Other: All systems not noted in ROS Statement are negative. Past Medical History Past Medical History: Asthma, Prostate Disorder, Respiratory Disorder History of Any Multi-Drug Resistant Organisms: None Reported Past Surgical History: No Surgical Hx Reported Additional Past Surgical History / Comment(s): l uretal stent and lithotripsy Past Anesthesia/Blood Transfusion Reactions: No Reported Reaction Past Psychological History: No Psychological Hx Reported Smoking Status: Current some day smoker, Former smoker Past Alcohol Use History: None Reported Past Drug Use History: None Reported - Past Family History Mother Family Medical History: Diabetes Mellitus Father Family Medical History: Coronary Artery Disease (CAD) General Exam Limitations: no limitations General appearance: alert, in no apparent distress Head exam: Present: atraumatic, normocephalic, normal inspection Eye exam: Present: normal appearance, PERRL, EOMI. Absent: scleral icterus, conjunctival injection, periorbital swelling ENT exam: Present: normal exam, mucous membranes moist Neck exam: Present: normal inspection. Absent: tenderness, meningismus, lymphadenopathy Respiratory exam: Present: normal lung sounds bilaterally. Absent: respiratory distress, wheezes, rales, rhonchi, stridor Cardiovascular Exam: Present: regular rate, normal rhythm, normal heart sounds. Absent: systolic murmur, diastolic murmur, rubs, gallop, clicks GI/Abdominal exam: Present: soft, tenderness (Tenderness noted to the left lower quadrant), normal bowel sounds. Absent: distended, guarding, rebound, rigid Neurological exam: Present: alert Course Vital Signs 03/26/21 03/26/21 03/26/21 10:21 12:23 12:24 Temperature 98.2 F Pulse Rate 76 60 Respiratory 18 16 16 Rate Blood Pressure 141/86 123/82 O2 Sat by Pulse 97 96 Oximetry Medical Decision Making - Medical Decision Making Vitals are stable. CBC unremarkable. White blood cell count is normal at 10. CMP does show some evidence of dehydration with a BUN to creatinine ratio of 31 and 2+ ketones in the urine. Patient was given fluids. Patient also has greater than 182 red and white blood cells in the urine as well. CT abdomen and pelvis was obtained which showed concerns for cystitis. There is also the left ureteral stent with the tip possibly in the proximal urethra. Post void residual 59. I did discuss this case with Dr. Cutler as he was on-call for Dr. Cabrales. He recommended starting patient on Cipro outpatient. He recommended calling Dr. Cabrales office regarding possible infection and placement of stent tomorrow morning. recommends urine culture. - Lab Data Result diagrams: 03/26/21 12:20 03/26/21 10:55 Lab Results 03/26/21 03/26/21 03/26/21 Range/Units 10:55 10:55 12:20 WBC 10.2 (3.8-10.6) k/uL RBC 4.51 (4.30-5.90) m/uL Hgb 14.5 (13.0-17.5) gm/dL Hct 42.3 (39.0-53.0) % MCV 93.8 (80.0-100.0) fL MCH 32.2 (25.0-35.0) pg MCHC 34.3 (31.0-37.0) g/dL RDW 12.8 (11.5-15.5) % Plt Count 218 (150-450) k/uL MPV 8.0 Neutrophils % 72 % Lymphocytes % 16 % Monocytes % 9 % Eosinophils % 1 % Basophils % 0 % Neutrophils # 7.3 (1.3-7.7) k/uL Lymphocytes # 1.6 (1.0-4.8) k/uL Monocytes # 0.9 (0-1.0) k/uL Eosinophils # 0.1 (0-0.7) k/uL Basophils # 0.0 (0-0.2) k/uL Sodium 137 (137-145) mmol/L Potassium 4.9 (3.5-5.1) mmol/L Chloride 108 H (98-107) mmol/L Carbon Dioxide 25 (22-30) mmol/L Anion Gap 4 mmol/L BUN 23 H (9-20) mg/dL Creatinine 0.74 (0.66-1.25) mg/dL Est GFR (CKD-EPI)AfAm >90 (>60 ml/min/1.73 sqM) Est GFR (CKD-EPI)NonAf >90 (>60 ml/min/1.73 sqM) Glucose 111 H (74-99) mg/dL Calcium 9.7 (8.4-10.2) mg/dL Total Bilirubin 1.1 (0.2-1.3) mg/dL AST 42 (17-59) U/L ALT 27 (4-49) U/L Alkaline Phosphatase 35 L (38-126) U/L Total Protein 7.0 (6.3-8.2) g/dL Albumin 4.0 (3.5-5.0) g/dL Amylase 89 (30-110) U/L Lipase 162 (23-300) U/L Urine Color Red Urine Appearance Turbid (Clear) Urine pH 6.5 (5.0-8.0) Ur Specific [place] 1.019 (1.001-1.035) Urine Protein 2+ H (Negative) Urine Glucose (UA) Negative (Negative) Urine Ketones Negative (Negative) Urine Blood Large H (Negative) Urine Nitrite Negative (Negative) Urine Bilirubin Negative (Negative) Urine Urobilinogen <2.0 (<2.0) mg/dL Ur Leukocyte Esterase Large H (Negative) Urine RBC >182 H (0-5) /hpf Urine WBC >182 H (0-5) /hpf Disposition Clinical Impression: Cystitis, Abdominal pain Disposition: HOME SELF-CARE Condition: Good Instructions (If sedation given, give patient instructions): Abdominal Pain (ED) Additional Instructions: Please take antibiotics as directed. Please take Motrin throughout the day. Follow-up with Dr cabrales first thing tomorrow morning. Return to the emergency room for any worsening symptoms. Prescriptions: Ciprofloxacin HCl [Cipro] 500 mg PO Q12H 7 Days #14 tab Is patient prescribed a controlled substance at d/c from ED?: No Referrals: Gee Cage Jr, DO [Primary Care Provider] - 1-2 days Romaine Cabrales MD [STAFF PHYSICIAN] - 1-2 days Time of Disposition: 13:59
[2021-03-26 11:22] LABS: ALT 27 U/L (4-49); African American GFR (CKD) >90 (>60 ml/min/1.73 sqM); Amylase 89 U/L (30-110); Anion Gap 4 mmol/L; Blood Urea Nitrogen 23 mg/dL (9-20); Calcium 9.7 mg/dL (8.4-10.2); Carbon Dioxide 25 mmol/L (22-30); Chloride 108 mmol/L (98-107); Glucose 111 mg/dL (74-99); Lipase 162 U/L (23-300); Non-African American GFR(CKD) >90 (>60 ml/min/1.73 sqM); Sodium 137 mmol/L (137-145); Total Bilirubin 1.1 mg/dL (0.2-1.3)
[2021-03-26 11:29] LABS: AST 42 U/L (17-59); Alkaline Phosphatase 35 U/L (38-126); Potassium 4.9 mmol/L (3.5-5.1)
[2021-03-26 12:07] LABS: Appearance,Urine Turbid (Clear); Bilirubin,Urine Negative (Negative); Blood,Urine Large (Negative); Color,Urine Red; Glucose,Urine (UA) Negative (Negative); Ketones,Urine Negative (Negative); Leukocyte Esterase,Urine Large (Negative); Nitrite,Urine Negative (Negative); PH, Urine 6.5 (5.0-8.0); Protein,Urine 2+ (Negative); RBC,Urine >182 /hpf (0-5); Specific Gravity,Urine 1.019 (1.001-1.035); Urobilinogen,Urine <2.0 mg/dL (<2.0); WBC,Urine >182 /hpf (0-5)
[2021-03-26 12:24] VITALS: RESP 16
[2021-03-26 12:26] VITALS: BP 123/82; PULSE 60
[2021-03-26 12:29] LABS: Basophils % (A) 0 %; Eosinophils # (A) 0.1 k/uL (0-0.7); Eosinophils % (A) 1 %; HCT 42.3 % (39.0-53.0); HGB 14.5 gm/dL (13.0-17.5); Lymphocytes # (A) 1.6 k/uL (1.0-4.8); Lymphocytes % (A) 16 %; MCH 32.2 pg (25.0-35.0); MCHC 34.3 g/dL (31.0-37.0); MCV 93.8 fL (80.0-100.0); Monocytes # (A) 0.9 k/uL (0-1.0); Monocytes % (A) 9 %; Neutrophils # (A) 7.3 k/uL (1.3-7.7); Neutrophils % (A) 72 %; Platelet Count 218 k/uL (150-450); RBC 4.51 m/uL (4.30-5.90); RDW 12.8 % (11.5-15.5); WBC 10.2 k/uL (3.8-10.6)
--- NOTE | 2021-03-26 13:16 | CT ---
EXAMINATION TYPE: CT abdomen pelvis wo con DATE OF EXAM: 03/26/2021 COMPARISON: 03/05/2021 HISTORY: Abdomen pain CT DLP: 848.6 mGycm Automated exposure control for dose reduction was used. Contrast: None Technique: Axial images 5 mm thick sections. Reconstructed images in the coronal plane. FINDINGS: Limited CT secondary 13th the lung bases which are clear CT ABDOMEN: Liver and spleen appear normal density without discrete masses or cysts. The adrenal glan ds are normal. Pancreas and gallbladder are normal. Kidneys appear unremarkable without masses or cys ts. There is a renal stent on the left with mild hydronephrosis. Renal stent extends to the urinary b ladder and may enter the proximal urethra. Bilateral inferior renal stones are noted. The largest on the right measures 1.0 cm. Largest on the left at the inferior pole measures 0.2 cm. Vascular calcifications within the aorta. The inferior vena cava is normal loops of bowel without con trast. Unremarkable. The appendix appears normal. Scattered diverticuli within the sigmoid colon AP pelvis: There is some mild thickening of the urinary bladder with some adjacent mild inflammatory change. Correlate for cystitis. Urinary bladder diverticulum may be along the anterolateral right asp ect of the urinary bladder. Prostate is prominent. IMPRESSION: 1. BILATERAL NONOBSTRUCTING RENAL STONES. 2. LEFT URETERAL STENT. THE PROXIMAL TIP MAY BE WITHIN THE PROXIMAL URETHRA. 3. SUGGESTION OF MILD DIFFUSE WALL THICKENING WITH ADJACENT INFLAMMATORY CHANGE OF THE URINARY BLADDE R. CORRELATE FOR CYSTITIS. THIS IS AN INTERVAL CHANGE.
[2021-03-26] MEDS ORDERED: CIPROFLOXACIN HCL 500 MG TAB PO STA (13:32)
== END 2021-03-26 14:08 | disposition home or self-care (01) ==
LOC: EC 10:16
DX: N30.90 Cystitis, unspecified without hematuria (principal); J45.909 Unspecified asthma, uncomplicated; F17.200 Nicotine dependence, unspecified, uncomplicated
CPT/HCPCS: 36415; 80053; 82150; 83690; 85025; 81001; 87086; 74176; 99284; 96374; 96361 ×3; 51798; J1885

== ENCOUNTER → 2021-04-21 | Outpatient (CLI) | payer OTHER ==
--- NOTE | 2021-04-21 16:16 | US ---
EXAMINATION TYPE: US kidneys/renal and bladder DATE OF EXAM: 04/21/2021 COMPARISON: CT CLINICAL HISTORY: N20.1 Calculus of ureter. Post left ureteral stones/renal stones removal one month ago EXAM MEASUREMENTS: Right Kidney: 12.1 x 5.2 x 5.9 cm Left Kidney: 13.3 x 5.9 x 6.0 cm Post Void Residual Volume: 16.6 mL Right Kidney: Renal calculus imaged in lower pole = 0.7 x 1.1 x 0.4cm no hydronephrosis. Left Kidney: small hyperechoic focus seen in lower pole may be vessel wall calcifications versus tin y nonobstructing calculus. Bladder: hypoechoic oval area seen right lateral bladder wall suggestive of urinary bladder wall dive rticula; prostate wall calcifications are incidentally noted Bilateral Jets seen: Yes Normal Post Void Residual: Yes No hydronephrosis. IMPRESSION: 1. Small amount of post void urinary bladder residual. 2. There is a right renal calculus measuring 1.1 cm which is nonobstructing of lower pole. Questionab le tiny left renal calculus versus vascular calcification. No hydronephrosis. 3. Probable urinary bladder diverticulum. 4. Prosthetic wall calcifications are incidentally seen.
== END | disposition home or self-care (01) ==
LOC: RADUSWWP 13:37
PROVIDERS: ATTEND Urology
DX: N20.2 Calculus of kidney with calculus of ureter (principal); R39.198 Other difficulties with micturition
CPT/HCPCS: 76770

== ENCOUNTER 2021-08-13 05:45 | Emergency (ER) | payer OTHER ==
[2021-08-13 06:00] VITALS: RESP 18; TEMP 98
[2021-08-13] MEDS ORDERED: ONDANSETRON 4 MG/2 ML VIAL IVP STA (06:14)
[2021-08-13] MEDS ORDERED: HYDROmorphone 1 MG/ML 1 ML SYRINGE IVP STA (06:14)
[2021-08-13] MEDS ORDERED: KETOROLAC 15 MG/ML 1 ML VIAL IVP STA (06:14)
[2021-08-13] MEDS ORDERED: SODIUM CHLORIDE 0.9% 2,000 ML IV STA (06:14)
--- NOTE | 2021-08-13 06:16 | ED ---
Abdominal Pain HPI - General Chief Complaint: Abdominal Pain Stated Complaint: Abd Pain Time Seen by Provider: 08/13/21 05:55 Source: patient, RN notes reviewed Mode of arrival: ambulatory Limitations: no limitations - History of Present Illness Initial Comments: This a 55-year-old male presents emergency Department chief complaint of right flank pain. Patient states pain started earlier states started some abdominal cramping and had been having some right flank right back cramps. Patient states he does have a history kidney stones recent procedure by Dr. moe. Patient had one episode of vomiting, still complains of nausea and no dysuria no he maturia denies any diarrhea constipation no prior abdominal surgeries on his kidney stone surgery. Patient denies chest pain shortness breath nothing makes his pain feel better or worse at this time. - Related Data Home Medications Medication Instructions Recorded Confirmed Fexofenadine/Pseudoephedrine 1 tab PO DAILY PRN 03/05/21 03/26/21 [Ami-D 24 Hour Tablet] Previous Rx's Medication Instructions Recorded HYDROcodone/APAP 5-325MG [Carlos 1 tab PO Q6HR PRN #12 tab 03/05/21 5-325] Tamsulosin [Flomax] 0.4 mg PO DAILY #7 cap 03/05/21 Ibuprofen 600 mg PO Q6H PRN #30 tab 03/24/21 Ciprofloxacin HCl [Cipro] 500 mg PO Q12H 7 Days #14 tab 03/26/21 Ketorolac [Toradol] 10 mg PO Q8HR #15 tab 08/13/21 Ondansetron Odt [Zofran Odt] 4 mg PO Q8HR PRN #10 tab 08/13/21 Allergies Allergy/AdvReac Type Severity Reaction Status Date / Time No Known Allergies Allergy Verified 03/26/21 11:28 Review of Systems ROS Statement: Those systems with pertinent positive or pertinent negative responses have been documented in the HPI. ROS Other: All systems not noted in ROS Statement are negative. Past Medical History Past Medical History: Asthma, Prostate Disorder, Respiratory Disorder Additional Past Medical History / Comment(s): Kidney stones, History of Any Multi-Drug Resistant Organisms: None Reported Past Surgical History: No Surgical Hx Reported Additional Past Surgical History / Comment(s): l uretal stent and lithotripsy Past Anesthesia/Blood Transfusion Reactions: No Reported Reaction Past Psychological History: No Psychological Hx Reported Smoking Status: Current some day smoker, Former smoker Past Alcohol Use History: Occasional Past Drug Use History: None Reported - Past Family History Mother Family Medical History: Diabetes Mellitus Father Family Medical History: Coronary Artery Disease (CAD) General Exam Limitations: no limitations General appearance: alert, in no apparent distress Head exam: Present: atraumatic, normocephalic, normal inspection Respiratory exam: Present: normal lung sounds bilaterally. Absent: respiratory distress, wheezes, rales, rhonchi, stridor Cardiovascular Exam: Present: regular rate, normal rhythm, normal heart sounds. Absent: systolic murmur, diastolic murmur, rubs, gallop, clicks GI/Abdominal exam: Present: soft, tenderness (Mild right-sided), normal bowel sounds. Absent: distended, guarding, rebound, rigid Back exam: Present: CVA tenderness (R). Absent: CVA tenderness (L) Neurological exam: Present: alert, oriented X3 Skin exam: Present: warm, dry, intact, normal color. Absent: rash Course Vital Signs 08/13/21 05:48 Temperature 98.0 F Pulse Rate 78 Respiratory 18 Rate Blood Pressure 116/101 O2 Sat by Pulse 97 Oximetry Medical Decision Making - Medical Decision Making Patient reevaluated and updated on results patient is resting comfortably, patient states that he states his pain feels improved. Patient does have hematuria consistent with prior kidney stones. Patient will follow-up urologist. Return parameters were discussed patient has hydrocodone at home. - Lab Data Result diagrams: 08/13/21 06:02 08/13/21 06:02 Lab Results 08/13/21 08/13/21 08/13/21 Range/Units 06:02 06:02 06:02 WBC 9.2 (3.8-10.6) k/uL RBC 4.78 (4.30-5.90) m/uL Hgb 14.9 (13.0-17.5) gm/dL Hct 44.6 (39.0-53.0) % MCV 93.3 (80.0-100.0) fL MCH 31.2 (25.0-35.0) pg MCHC 33.4 (31.0-37.0) g/dL RDW 12.3 (11.5-15.5) % Plt Count 218 (150-450) k/uL MPV 7.6 Neutrophils % 80 % Lymphocytes % 12 % Monocytes % 6 % Eosinophils % 1 % Basophils % 0 % Neutrophils # 7.3 (1.3-7.7) k/uL Lymphocytes # 1.1 (1.0-4.8) k/uL Monocytes # 0.6 (0-1.0) k/uL Eosinophils # 0.1 (0-0.7) k/uL Basophils # 0.0 (0-0.2) k/uL Sodium 134 L (137-145) mmol/L Potassium 4.9 (3.5-5.1) mmol/L Chloride 105 (98-107) mmol/L Carbon Dioxide 22 (22-30) mmol/L Anion Gap 7 mmol/L BUN 22 H (9-20) mg/dL Creatinine 0.84 (0.66-1.25) mg/dL Est GFR (CKD-EPI)AfAm >90 (>60 ml/min/1.73 sqM) Est GFR (CKD-EPI)NonAf >90 (>60 ml/min/1.73 sqM) Glucose 135 H (74-99) mg/dL Plasma Lactic Acid Sean 1.6 (0.7-2.0) mmol/L Calcium 10.4 H (8.4-10.2) mg/dL Total Bilirubin 1.2 (0.2-1.3) mg/dL AST 48 (17-59) U/L ALT 42 (4-49) U/L Alkaline Phosphatase 56 (38-126) U/L Total Protein 7.4 (6.3-8.2) g/dL Albumin 4.4 (3.5-5.0) g/dL Amylase 64 (30-110) U/L Lipase 106 (23-300) U/L Urine Color Urine Appearance (Clear) Urine pH (5.0-8.0) Ur Specific [place] (1.001-1.035) Urine Protein (Negative) Urine Glucose (UA) (Negative) Urine Ketones (Negative) Urine Blood (Negative) Urine Nitrite (Negative) Urine Bilirubin (Negative) Urine Urobilinogen (<2.0) mg/dL Ur Leukocyte Esterase (Negative) Urine RBC (0-5) /hpf Urine WBC (0-5) /hpf Ur Squamous Epith Cells (0-4) /hpf Urine Mucus (None) /hpf 08/13/21 Range/Units 06:16 WBC (3.8-10.6) k/uL RBC (4.30-5.90) m/uL Hgb (13.0-17.5) gm/dL Hct (39.0-53.0) % MCV (80.0-100.0) fL MCH (25.0-35.0) pg MCHC (31.0-37.0) g/dL RDW (11.5-15.5) % Plt Count (150-450) k/uL MPV Neutrophils % % Lymphocytes % % Monocytes % % Eosinophils % % Basophils % % Neutrophils # (1.3-7.7) k/uL Lymphocytes # (1.0-4.8) k/uL Monocytes # (0-1.0) k/uL Eosinophils # (0-0.7) k/uL Basophils # (0-0.2) k/uL Sodium (137-145) mmol/L Potassium (3.5-5.1) mmol/L Chloride (98-107) mmol/L Carbon Dioxide (22-30) mmol/L Anion Gap mmol/L BUN (9-20) mg/dL Creatinine (0.66-1.25) mg/dL Est GFR (CKD-EPI)AfAm (>60 ml/min/1.73 sqM) Est GFR (CKD-EPI)NonAf (>60 ml/min/1.73 sqM) Glucose (74-99) mg/dL Plasma Lactic Acid Sean (0.7-2.0) mmol/L Calcium (8.4-10.2) mg/dL Total Bilirubin (0.2-1.3) mg/dL AST (17-59) U/L ALT (4-49) U/L Alkaline Phosphatase (38-126) U/L Total Protein (6.3-8.2) g/dL Albumin (3.5-5.0) g/dL Amylase (30-110) U/L Lipase (23-300) U/L Urine Color Yellow Urine Appearance Clear (Clear) Urine pH 5.5 (5.0-8.0) Ur Specific [place] 1.014 (1.001-1.035) Urine Protein Trace H (Negative) Urine Glucose (UA) Negative (Negative) Urine Ketones Trace H (Negative) Urine Blood Large H (Negative) Urine Nitrite Negative (Negative) Urine Bilirubin Negative (Negative) Urine Urobilinogen <2.0 (<2.0) mg/dL Ur Leukocyte Esterase Negative (Negative) Urine RBC 54 H (0-5) /hpf Urine WBC 4 (0-5) /hpf Ur Squamous Epith Cells <1 (0-4) /hpf Urine Mucus Occasional H (None) /hpf Disposition Clinical Impression: Kidney stone on right side, Right flank pain Disposition: HOME SELF-CARE Condition: Stable Instructions (If sedation given, give patient instructions): Kidney Stones (ED) Additional Instructions: Please contact your urologist tomorrow.Please return to the Emergency Department if symptoms worsen or any other concerns. Prescriptions: Ketorolac [Toradol] 10 mg PO Q8HR #15 tab Ondansetron Odt [Zofran Odt] 4 mg PO Q8HR PRN #10 tab PRN Reason: Nausea Is patient prescribed a controlled substance at d/c from ED?: No Referrals: Gee Cage Jr, [Primary Care Provider] - 1-2 days Time of Disposition: 07:54
[2021-08-13 06:37] LABS: Basophils % (A) 0 %; Eosinophils # (A) 0.1 k/uL (0-0.7); Eosinophils % (A) 1 %; HCT 44.6 % (39.0-53.0); HGB 14.9 gm/dL (13.0-17.5); Lymphocytes # (A) 1.1 k/uL (1.0-4.8); Lymphocytes % (A) 12 %; MCH 31.2 pg (25.0-35.0); MCHC 33.4 g/dL (31.0-37.0); MCV 93.3 fL (80.0-100.0); Mean Platelet Volume 7.6; Monocytes # (A) 0.6 k/uL (0-1.0); Monocytes % (A) 6 %; Neutrophils # (A) 7.3 k/uL (1.3-7.7); Neutrophils % (A) 80 %; Platelet Count 218 k/uL (150-450); RBC 4.78 m/uL (4.30-5.90); RDW 12.3 % (11.5-15.5); WBC 9.2 k/uL (3.8-10.6)
[2021-08-13 06:44] LABS: ALT 42 U/L (4-49); African American GFR (CKD) >90 (>60 ml/min/1.73 sqM); Amylase 64 U/L (30-110); Anion Gap 7 mmol/L; Blood Urea Nitrogen 22 mg/dL (9-20); Calcium 10.4 mg/dL (8.4-10.2); Carbon Dioxide 22 mmol/L (22-30); Chloride 105 mmol/L (98-107); Glucose 135 mg/dL (74-99); Lipase 106 U/L (23-300); Non-African American GFR(CKD) >90 (>60 ml/min/1.73 sqM); Sodium 134 mmol/L (137-145)
--- NOTE | 2021-08-13 06:46 | XR ---
EXAMINATION TYPE: XR KUB DATE OF EXAM: 08/13/2021 COMPARISON: 03/24/2021 HISTORY: Abdominal pain TECHNIQUE: 2 views FINDINGS: There is no sign of intestinal obstruction or pneumoperitoneum. Fecal pattern is normal. Th ere is no sign of a mass. There are no pathologic calcifications over the left kidney. There is 7 mm calcification over the lower pole right kidney. Lung bases are clear. IMPRESSION: Right renal calculus without change. Nonacute abdomen.
[2021-08-13 07:22] LABS: AST 48 U/L (17-59); Alkaline Phosphatase 56 U/L (38-126); Potassium 4.9 mmol/L (3.5-5.1)
[2021-08-13 07:23] LABS: Albumin 4.4 g/dL (3.5-5.0); Total Protein 7.4 g/dL (6.3-8.2)
[2021-08-13 07:24] LABS: Total Bilirubin 1.2 mg/dL (0.2-1.3)
[2021-08-13 07:44] LABS: Appearance,Urine Clear (Clear); Bilirubin,Urine Negative (Negative); Blood,Urine Large (Negative); Color,Urine Yellow; Glucose,Urine (UA) Negative (Negative); Ketones,Urine Trace (Negative); Leukocyte Esterase,Urine Negative (Negative); Mucus,Urine Occasional /hpf; Nitrite,Urine Negative (Negative); PH, Urine 5.5 (5.0-8.0); Protein,Urine Trace (Negative); RBC,Urine 54 /hpf (0-5); Specific Gravity,Urine 1.014 (1.001-1.035); Squamous Epithelial Cell,Urine <1 /hpf (0-4); Urobilinogen,Urine <2.0 mg/dL (<2.0); WBC,Urine 4 /hpf (0-5)
[2021-08-13 08:16] VITALS: BP 100/70; PULSE 64
== END 2021-08-13 08:07 | disposition home or self-care (01) ==
LOC: EC 05:45
DX: N20.0 Calculus of kidney (principal); J45.909 Unspecified asthma, uncomplicated; F17.200 Nicotine dependence, unspecified, uncomplicated
CPT/HCPCS: 99284; 96374; 96375 ×2; 96361 ×2; 36415; 80053; 82150; 83605; 83690; 85025; 81001; 74018; J2405; J1170; J1885

== ENCOUNTER → 2021-09-05 | Outpatient (CLI) | payer OTHER ==
--- NOTE | 2021-09-06 07:10 | XR ---
EXAMINATION TYPE: XR KUB DATE OF EXAM: 09/05/2021 HISTORY: Pain Comparison: 08/13/2021 Single KUB is submitted for interpretation. Findings: Right renal calculi: 9 mm calculus overlies the lower pole of the right kidney. Right ureteral calculi: None Visualized. Left renal calculi: None Visualized. Left ureteral calculi: None Visualized. Pelvic calcifications: Pelvic calcifications are stable. Bowel gas pattern is unremarkable. No free air. No mass effects. IMPRESSION: 1. 9 mm calculus overlies the lower pole of the right kidney.
== END | disposition home or self-care (01) ==
LOC: LABWHC1 15:51
PROVIDERS: ATTEND Urology
DX: N20.0 Calculus of kidney (principal)
CPT/HCPCS: 74018

== ENCOUNTER → 2021-09-25 | Outpatient (CLI) | payer OTHER ==
[2021-09-25 14:04] LABS: Basophils % (A) 1 %; Eosinophils # (A) 0.1 k/uL (0-0.7); Eosinophils % (A) 3 %; HCT 43.6 % (39.0-53.0); HGB 14.5 gm/dL (13.0-17.5); Lymphocytes # (A) 1.3 k/uL (1.0-4.8); Lymphocytes % (A) 33 %; MCH 31.5 pg (25.0-35.0); MCHC 33.1 g/dL (31.0-37.0); MCV 95.1 fL (80.0-100.0); Mean Platelet Volume 7.4; Monocytes # (A) 0.4 k/uL (0-1.0); Monocytes % (A) 9 %; Neutrophils # (A) 2.1 k/uL (1.3-7.7); Neutrophils % (A) 52 %; Platelet Count 232 k/uL (150-450); RBC 4.59 m/uL (4.30-5.90); RDW 12.6 % (11.5-15.5); WBC 4.1 k/uL (3.8-10.6)
[2021-09-25 14:14] LABS: Appearance,Urine Clear (Clear); Bilirubin,Urine Negative (Negative); Blood,Urine Negative (Negative); Color,Urine Yellow; Glucose,Urine (UA) Negative (Negative); Ketones,Urine Negative (Negative); Leukocyte Esterase,Urine Negative (Negative); Nitrite,Urine Negative (Negative); PH, Urine 6.5 (5.0-8.0); Protein,Urine Negative (Negative); Specific Gravity,Urine 1.018 (1.001-1.035); Urobilinogen,Urine <2.0 mg/dL (<2.0)
[2021-09-25 14:17] LABS: African American GFR (CKD) >90 (>60 ml/min/1.73 sqM); Anion Gap 6 mmol/L; Blood Urea Nitrogen 20 mg/dL (9-20); Carbon Dioxide 25 mmol/L (22-30); Chloride 107 mmol/L (98-107); Non-African American GFR(CKD) >90 (>60 ml/min/1.73 sqM); Potassium 4.5 mmol/L (3.5-5.1); Sodium 138 mmol/L (137-145)
== END | disposition home or self-care (01) ==
LOC: LABPAT 13:10
PROVIDERS: ATTEND Urology
DX: Z01.812 Encounter for preprocedural laboratory examination (principal); N20.0 Calculus of kidney
CPT/HCPCS: 36415; 80051; 81003; 82565; 84520; 85025; 87086

== ENCOUNTER 2021-10-02 06:08 | Day surgery (SDC) | payer OTHER ==
[2021-09-28 16:16] VITALS: BMI 29.3
--- NOTE | 2021-10-01 15:01 | P.HPIHPCON ---
History of Present Illness H&P Date: 10/01/21 Chief Complaint: right renal calculi This is a 55 yo male with hx of 9mm right sided renal calculi. He is symptomatic from his stone. Option of ESWL and ureteroscopy were discussed with him. He agreed to proceed with right sided ESWL. risk of bleeding, infection, renal hematoma and need additional procedures were discussed with him Consent for Procedure: I have explained the operation/procedure to the patient, including the risks, benefits, side effects, alternative therapies (including not receiving the proposed treatment or service), the likelihood of the patient achieving his/her goals, and potential recuperation problems for the procedure/sedation/analgesia, as well as any blood products, if indicated. I also explained to the patient the risks, benefits and side effects of the alternatives, as well as the risks related to not receiving the proposed procedure, care, treatment, or services. Past Medical History Past Medical History: Asthma, Prostate Disorder Additional Past Medical History / Comment(s): Kidney stones History of Any Multi-Drug Resistant Organisms: None Reported Past Surgical History: No Surgical Hx Reported Additional Past Surgical History / Comment(s): cystoscopy & left uretal stent and lithotripsy Past Anesthesia/Blood Transfusion Reactions: No Reported Reaction Smoking Status: Former smoker, Vaper - Past Family History Mother Family Medical History: Diabetes Mellitus Father Family Medical History: Coronary Artery Disease (CAD) Medications and Allergies Home Medications Medication Instructions Recorded Confirmed Type Fexofenadine/Pseudoephedrine 1 tab PO DAILY PRN 03/05/21 09/28/21 History [Ami-D 24 Hour Tablet] Tamsulosin [Flomax] 0.4 mg PO DAILY #7 cap 03/05/21 09/28/21 Rx Ondansetron Odt [Zofran Odt] 4 mg PO Q8HR PRN #10 tab 08/13/21 09/28/21 Rx Finasteride [Proscar] 5 mg PO DAILY 09/28/21 09/28/21 History Allergies Allergy/AdvReac Type Severity Reaction Status Date / Time No Known Allergies Allergy Verified 09/28/21 16:12 Surgical - Exam - General no distress, moderate pain - ENT normal nares, normal mucosa - Abdomen Abdomen: soft, non tender Assessment and Plan Assessment: 55 yo hx of 9 mm RLP renal stone -OR for right sided ESWL
[2021-10-02] MEDS ORDERED: LACTATED RINGERS 1,000 ML IV SCH (06:33)
[2021-10-02] MEDS ORDERED: LIDOCAINE 1% (10MG/ML) FOR IV START INTRADERMA ONE (07:08)
[2021-10-02] MEDS ORDERED: PROPOFOL 10 MG/ML 20 ML VIAL IV ONE (07:36)
[2021-10-02] MEDS ORDERED: KETAMINE 10 MG/ML 20 ML VIAL ONE (07:36)
[2021-10-02] MEDS ORDERED: fentaNYL (PF) 50 MCG/ML 2 ML AMP ONE (07:36)
[2021-10-02] MEDS ORDERED: LIDOCAINE 1% INJ 10MG/ML (20 ML MDV) ONE (07:36)
[2021-10-02] MEDS ORDERED: MIDAZOLAM 2 MG/2 ML VIAL ONE (07:36)
--- NOTE | 2021-10-02 07:44 | XR ---
EXAMINATION TYPE: XR KUB DATE OF EXAM: 10/02/2021 Comparison: 09/05/2021 Clinical History: 55-year-old male Right Renal Calculus N20.0 Findings: 9 mm right mid abdominal calcification redemonstrated. Possible 1.3 cm bladder calculus. Small round calcification right hemipelvis is unchanged, probable phlebolith. Nonobstructive bowel gas pattern. Mild stool burden. Impression: 1. Stable 9 mm right renal calculus. 2. Possible 1.3 cm bladder calculus.
[2021-10-02 08:28] VITALS: RESP 18
--- NOTE | 2021-10-02 08:29 | P.OP ---
Date of Procedure: 10/02/21 Preoperative Diagnosis: Right renal calculus Postoperative Diagnosis: Same Procedure(s) Performed: Right extracorporal shockwave lithotripsy (ESWL) Anesthesia: MAC Surgeon: Oli Cutler Estimated Blood Loss (ml): 0 IV fluids (ml): 450 Pathology: none sent Condition: stable Disposition: PACU Indications for Procedure: This is a 55 yo male with a history of urolithiasis. He has recently experienced right flank pain was found to have a 9 mm right renal calculus. Alternative treatment options were reviewed and he has elected to undergo ESWL. Operative Findings: 9 mm right lower pole renal calculus, fragmented completely. Description of Procedure: The patient was taken to the operating room and placed on the [employer] Delta II lithotripter in the supine position. The calculus was seen on biplanar fluoroscopy. Once the patient was properly positioned and sedated, lithotripsy was performed. The energy level was gradually increased per protocol, to an energy level of 5. After 200 shocks were administered, a 2 minute pause was instituted per protocol. A total of 2500 shocks were given at a rate of 80 shocks per minute. Fluoroscopy was utilized at a minimum to ensure proper positioning and determine the treatment status. The calculus changed in appearance, consistent with fragmentation. The patient tolerated the procedure well was taken to the recovery room in stable condition. Instructions were given to strain the urine, and the patient will follow-up within one week.
[2021-10-02 08:45] VITALS: BP 115/78; PULSE 71
== END 2021-10-02 09:18 | disposition home or self-care (01) ==
LOC: ORWHC2ENDO 06:08
PROVIDERS: ATTEND Urology
DX: N20.0 Calculus of kidney (principal)
CPT/HCPCS: 50590; 74018; J2250; J2001; J3010; J2704

== ENCOUNTER → 2021-10-04 | Outpatient (CLI) | payer OTHER | END | disposition home or self-care (01) | LOC: RADXRMAIN 12:30 | PROVIDERS: ATTEND Urology | DX: Z53.9 Procedure and treatment not carried out, unspecified reason (principal) ==

== ENCOUNTER 2021-10-09 15:00 | Day surgery (SDC) | payer OTHER ==
--- NOTE | 2021-10-09 15:33 | XR ---
EXAMINATION TYPE: XR KUB DATE OF EXAM: 10/09/2021 Comparison: 10/09/2021 Clinical History: 55-year-old male STONE LOCATION EXAM Findings: Small 5 mm calcification projecting at the lower pole of right kidney. There may be a faint calcifica tion measuring 5 mm at the left midpole as well. Suspect that some of the previous tiny straw calculi have passed. Some residual calculi stent 8 mm li miller at the distal right ureter. Chronic calcification midline pelvis and right-sided pelvic phlebolith. Impression: Faint 5 mm calcifications projecting at the kidney on either side. Solid the previous right-sided Matt [address] calculi have passed. Residual calculi remain spanning 8 mm.
[2021-10-09] MEDS ORDERED: LACTATED RINGERS 1,000 ML IV ONE ×3 (15:56→20:01)
[2021-10-09] MEDS ORDERED: ONDANSETRON 4 MG/2 ML VIAL ONE (15:59)
[2021-10-09] MEDS ORDERED: ONDANSETRON 4 MG/2 ML VIAL IVP ONE (16:20)
[2021-10-09] MEDS ORDERED: DEXAMETHASONE SOD PHOSPHATE 4 MG/ML 1 ML VIAL IVP ONE (16:20)
--- NOTE | 2021-10-09 16:57 | P.HPIHPCON ---
History of Present Illness H&P Date: 10/09/21 Chief Complaint: Right-sided ureteral stone This is a 55-year-old male who underwent ESWL on the right side on October 02. Postoperative x-ray showed a 5 mm right-sided renal stone, and multiple distal right ureteral stone. He is having significant pain secondary to his distal ureteral stones. Discussed with him given this finding on x-ray and his pain,I recommend proceeding with right-sided ureteroscopy with holmium laser. Discussed with him the risk which includes but not limited to bleeding, infection, injury to the ureter. Discussed also with him risk from anesthesia. He understood all the risk and agreed to proceed with right-sided ureteroscopy, with holmium laser lithotripsy, stone basketing and stent placement Consent for Procedure: I have explained the operation/procedure to the patient, including the risks, benefits, side effects, alternative therapies (including not receiving the proposed treatment or service), the likelihood of the patient achieving his/her goals, and potential recuperation problems for the procedure/sedation/analgesia, as well as any blood products, if indicated. I also explained to the patient the risks, benefits and side effects of the alternatives, as well as the risks related to not receiving the proposed procedure, care, treatment, or services. - Constitutional Constitutional: Denies chills, Denies fever Past Medical History Past Medical History: Asthma, Prostate Disorder, Respiratory Disorder Additional Past Medical History / Comment(s): Kidney stones, History of Any Multi-Drug Resistant Organisms: None Reported Past Surgical History: No Surgical Hx Reported Additional Past Surgical History / Comment(s): l uretal stent and lithotripsy Past Anesthesia/Blood Transfusion Reactions: No Reported Reaction Smoking Status: Current some day smoker, Former smoker Past Alcohol Use History: Occasional - Past Family History Mother Family Medical History: Diabetes Mellitus Father Family Medical History: Coronary Artery Disease (CAD) Medications and Allergies Home Medications Medication Instructions Recorded Confirmed Type Fexofenadine/Pseudoephedrine 1 tab PO DAILY PRN 03/05/21 10/02/21 History [Ami-D 24 Hour Tablet] Tamsulosin [Flomax] 0.4 mg PO DAILY #7 cap 03/05/21 10/02/21 Rx Ondansetron Odt [Zofran Odt] 4 mg PO Q8HR PRN #10 tab 08/13/21 10/02/21 Rx Finasteride [Proscar] 5 mg PO DAILY 09/28/21 10/02/21 History Allergies Allergy/AdvReac Type Severity Reaction Status Date / Time No Known Allergies Allergy Verified 10/09/21 15:23 Surgical - Exam Vital Signs Temp Pulse Resp BP Pulse Ox 97.7 F 74 18 149/77 95 10/09/21 15:31 10/09/21 15:31 10/09/21 15:31 10/09/21 15:31 10/09/21 15:31 - General no distress, severe pain - Eyes PERRL, normal ocular movement - ENT normal nares, normal mucosa - Respiratory normal expansion, normal respiratory effort - Abdomen Abdomen: soft, non tender - Psychiatric oriented to time, oriented to person, oriented to place Assessment and Plan Assessment: OR for right-sided ureteroscopy, holmium laser lithotripsy, stone basketing and stent insertion
[2021-10-09] MEDS ORDERED: LIDOCAINE 1% INJ 10MG/ML (20 ML MDV) ONE (18:27)
[2021-10-09] MEDS ORDERED: PROPOFOL 10 MG/ML 20 ML VIAL IV ONE (18:27)
[2021-10-09] MEDS ORDERED: fentaNYL (PF) 50 MCG/ML 2 ML AMP ONE (18:27)
[2021-10-09] MEDS ORDERED: SUCCINYLCHOLINE CHLORIDE 100 MG/5 ML SYR IV ONE (18:27)
[2021-10-09] MEDS ORDERED: MIDAZOLAM 2 MG/2 ML VIAL ONE (18:27)
--- NOTE | 2021-10-09 19:41 | P.OP ---
Date of Procedure: 10/09/21 Preoperative Diagnosis: right sided ureteral stone Postoperative Diagnosis: Right ureteral stone, bladder stone Procedure(s) Performed: Cystoscopy, right ureteroscopy holmium laser lithotripsy, stone basketting, stent placement and cystolitholapaxy Implants: 6-[place] by 28 cm stent left on a string in the right ureter and taped to the patient penis Anesthesia: GERARD Surgeon: Romaine Cabrales Estimated Blood Loss (ml): 5 Pathology: none sent Condition: stable Disposition: PACU Indications for Procedure: This is a 55-year-old male who underwent ESWL on the right side on October 02. Postoperative x-ray showed a 5 mm right-sided renal stone, and multiple distal right ureteral stone. He is having significant pain secondary to his distal ureteral stones. Discussed with him given this finding on x-ray and his pain,I recommend proceeding with right-sided ureteroscopy with holmium laser. Discussed with him the risk which includes but not limited to bleeding, infection, injury to the ureter. Discussed also with him risk from anesthesia. He understood all the risk and agreed to proceed with right-sided ureteroscopy, with holmium laser lithotripsy, stone basketing and stent placement Operative Findings: Multiple stones within the right distal ureter, multiple small fragments within the right lower pole, approximately 1.5 centimeter stone in the bladder Description of Procedure: Patient was brought to the operating room, general anesthesia was induced. He was prepped and draped in sterile fashion and placed in the dorsal lithotomy position. A cystoscopy fitted with a 21-[place] sheath was inserted per urethra, the right ureteral orifice was intubated with a sensor wire. Next a semirigid ureteroscope was inserted through the urethra and advanced up the right ureteral orifice. Multiple stones were seen within the distal ureter. Using the holmium laser the stone was fragmented into small fragments, sizable fragments were removed. At this time the ureteroscope was advanced all the way to the proximal ureter which showed no additional stones or injury to the ureter. Pullback ureteroscopy was performed showed no injury to the ureter or any ureteral fragments. Next a 1113 [place] access sheath was passed over the wire into the proximal ureter. Flexible ureteroscope was advanced through the access sheath, renoscopy was performed which showed multiple small stones within the lower pole of the right kidney. Using the holmium laser the stones were fragmented into small fragments, repeat renoscopy showed no sizable fragments or injury to the kidney. Pullback ureteroscopy was performed which showed no injury to the ureter or any ureteral fragments. As the ureteroscope was withdrawn, a sensor wire was advanced through. Next the cystoscope was inserted through the urethra and into the bladder. The stones was visualized. Using the holmium laser stone was fragmented into small fragments, all fragments were irrigated out. Repeat cystoscopy showed no sizable fragments or injury to the bladder. Of note patient had a significantly enlarged median lobe, but there was no prosthetic bleeding. At this time ureteral stent was passed over the wire, the proximal curl was visualized on fluoroscopy and the distal curl was visualized using cystoscope. The bladder was emptied at the end of case. The stent was left on a string and taped to the patient penis. Patient tolerated the procedure well was taken to recovery in stable condition
[2021-10-09 19:52] VITALS: RESP 16; TEMP 98.5
[2021-10-09] MEDS ORDERED: KETOROLAC 30 MG/ML 1 ML VIAL ONE (19:55)
[2021-10-09] MEDS ORDERED: HYDROmorphone 0.5 MG/0.5 ML SYRINGE IVP ONE ×3 (19:55→20:25)
[2021-10-09] MEDS ORDERED: KETOROLAC 15 MG/ML 1 ML VIAL IVP ONE (20:00)
[2021-10-09] MEDS ORDERED: hydrALAZINE HCL 20 MG/ML 1 ML VIAL ONE (20:23)
[2021-10-09] MEDS ORDERED: hydrALAZINE HCL 20 MG/ML 1 ML VIAL IVP ONE (20:30)
[2021-10-09 21:18] VITALS: BP 163/69; PULSE 72
--- NOTE | 2021-10-10 08:23 | FL ---
Fluoroscopy History: Right renal stones RT RENAL AND BLADDER CALCULUS. 30.5 SECS FL. 2 IMAGES SAVED.
== END 2021-10-09 21:22 | disposition home or self-care (01) ==
LOC: OR 15:00
PROVIDERS: ATTEND Urology
DX: N20.1 Calculus of ureter (principal); J45.909 Unspecified asthma, uncomplicated; N42.9 Disorder of prostate, unspecified; Z79.899 Other long term (current) drug therapy; Z87.891 Personal history of nicotine dependence
CPT/HCPCS: 74018; 52356; 52317; C2625; C1769; J2250; J0360; J1100; J0690; J2405; J2001; J3010; J1885; J0330; J2704; J1170

== ENCOUNTER → 2021-10-09 | Outpatient (CLI) | payer OTHER ==
--- NOTE | 2021-10-09 08:06 | XR ---
EXAMINATION TYPE: XR KUB DATE OF EXAM: 10/09/2021 Comparison: 10/02/2021 Clinical History: 55-year-old male N20.0. Status post right-sided ESWL on 10/02/2021. Findings: Nonobstructive bowel gas pattern. Scattered mild stool. A string of tiny calculi are present in the region of the distal right ureter spanning 1.6 cm with a individual stones measuring up to 4 mm. Stable chronic oval calcification in the right paramedian pel vis. Residual faint calcification measuring 5 mm projecting at the lower pole the right kidney. Chron ic phleboliths in the pelvis. Impression: 1. [place] [address] calculi in the distal right ureter spanning 1.6 cm. 2. Faint residual 5 mm density at the right mid abdomen, probably in the right kidney.
== END | disposition home or self-care (01) ==
LOC: RADXRMAIN 07:43
PROVIDERS: ATTEND Urology
DX: N20.1 Calculus of ureter (principal)
CPT/HCPCS: 74018; 82365

== ENCOUNTER → 2022-09-24 | Outpatient (CLI) | payer OTHER ==
--- NOTE | 2022-09-24 16:18 | XR ---
EXAMINATION TYPE: XR KUB DATE OF EXAM: 09/24/2022 HISTORY: History kidney stones. Comparison: None. Technique: Supine KUB is submitted for interpretation. Findings: Stable 1.1 cm calcification overlying the lower pole the left kidney. No definitive calcifications ov erlying the right kidney. Multiple new round calcifications demonstrated along the right urinary blad sheldon/ureterovesical junction measuring up to 8 mm. Approximately 16 demonstrated. Bowel gas pattern is unremarkable. No evidence of free air on this supine examination. No mass effects. IMPRESSION: 1. Approximately 16 new calcifications demonstrated overlying the right pelvis in the region of the u rinary bladder and right ureterovesical junction. 2. Stable left lower pole renal calculus.
== END | disposition home or self-care (01) ==
LOC: RADXRMAIN 15:30
PROVIDERS: ATTEND Urology
DX: N20.0 Calculus of kidney (principal)
CPT/HCPCS: 74018

== ENCOUNTER 2023-01-24 10:20 | Day surgery (SDC) | payer OTHER ==
[2023-01-21 10:27] VITALS: BMI 30.8
[~2023-01-24 10:20] MED LIST changes: +LIDOCAINE 1% (10MG/ML) FOR IV START INTRADERMA PRN; -SCOPOLAMINE 1.5MG/72HR PATCH TRANSDERM ONE
--- NOTE | 2023-01-24 10:44 | XR ---
EXAMINATION TYPE: XR KUB DATE OF EXAM: 01/24/2023 10:37 AM INDICATION: Patient age:Male; 57 years old; Reason for study: Kidney stones; COMPARISON: Multiple KUBs most recent to 12/25/2022 TECHNIQUE: One radiographic view of the abdomen was obtained. FINDINGS: Multiple calcific densities project over the urinary bladder consistent with bladder stones along with a left renal sinus calculus measuring up to 12 mm. Nonspecific bowel gas pattern. IMPRESSION: Urinary bladder calculi and left renal sinus calculus.
--- NOTE | 2023-01-24 11:09 | P.HPIHPCON ---
History of Present Illness H&P Date: 01/24/23 Chief Complaint: left renal stone, bladder stone this is 57 yo male with hx of hyperparathyroidism, history of recurrent kidney and bladder stones more than 12 stones in the bladder . He's been having recurrent gross hematuria secondary to his bladder stones, option of cy stolitholapaxy with left-sided ureteroscopy wit holmium laser to address his kidney stones at the same setting was discussed with him. Risk and benefit of surgery which includes but not limited to bleeding, infection, injury to the bladder, ureter, kidney. Of note he is also currently undergoing evaluation for his hyperparathyroidism and the plan is to proceed with parathyroidectomy [facility]. Risk of anesthesia was also discussed with him. He understood all the risk and agreed to proceed Consent for Procedure: I have explained the operation/procedure to the patient, including the risks, benefits, side effects, alternative therapies (including not receiving the proposed treatment or service), the likelihood of the patient achieving his/her goals, and potential recuperation problems for the procedure/sedation/analgesia, as well as any blood products, if indicated. I also explained to the patient the risks, benefits and side effects of the alternatives, as well as the risks related to not receiving the proposed procedure, care, treatment, or services. Past Medical History Past Medical History: Asthma, Prostate Disorder Additional Past Medical History / Comment(s): Hx of and current kidney stones. Enlarged prostate. Having parathyroid surgery on 01/30/23. History of Any Multi-Drug Resistant Organisms: None Reported Past Surgical History: No Surgical Hx Reported Additional Past Surgical History / Comment(s): Left ureteral stent and lithotripsy. Past Anesthesia/Blood Transfusion Reactions: No Reported Reaction Past Psychological History: No Psychological Hx Reported Smoking Status: Former smoker, Vaper Past Alcohol Use History: Rare Additional Past Alcohol Use History / Comment(s): Quit smoking tobbaco 3 yrs ago, vapes now. Past Drug Use History: None Reported - Past Family History Mother Family Medical History: Diabetes Mellitus Father Family Medical History: Coronary Artery Disease (CAD) Medications and Allergies Home Medications Medication Instructions Recorded Confirmed Type Tamsulosin [Flomax] 0.4 mg PO DAILY #7 cap 03/05/21 01/21/23 Rx Cholecalciferol [Vitamin D3 (25 25 mcg PO DAILY 01/21/23 01/21/23 History Mcg = 1000 Iu)] Allergies Allergy/AdvReac Type Severity Reaction Status Date / Time No Known Allergies Allergy Verified 01/21/23 10:11 Surgical - Exam - General no distress, moderate pain - Eyes normal ocular movement, no pale - ENT normal nares, normal mucosa - Respiratory normal expansion, normal respiratory effort - Abdomen Abdomen: soft, non tender Assessment and Plan Assessment: OR for cystolitholapaxy, left-sided ureteroscopy, holmium laser lithotripsy, stone basketing and stent insertion
[2023-01-24 11:26] VITALS: RESP 16
[2023-01-24] MEDS ORDERED: ceFAZolin 1,000 MG VIAL ONE (11:37)
[2023-01-24] MEDS ORDERED: KETOROLAC 15 MG/ML 1 ML VIAL ONE (11:37)
[2023-01-24] MEDS ORDERED: SUCCINYLCHOLINE CHLORIDE 200 MG/10 ML VIAL IV ONE (11:37)
[2023-01-24] MEDS ORDERED: MIDAZOLAM 2 MG/2 ML VIAL ONE (11:37)
[2023-01-24] MEDS ORDERED: HYDROmorphone (PF) 1 MG/ML ONE (11:37)
[2023-01-24] MEDS ORDERED: PROPOFOL 10 MG/ML 20 ML VIAL IV ONE (11:37)
[2023-01-24] MEDS ORDERED: GLYCOPYRROLATE 0.2 MG/ML 2 ML VIAL ONE (11:37)
[2023-01-24] MEDS ORDERED: SODIUM CHLORIDE 0.9% 100 ML BAG ONE (11:37)
[2023-01-24] MEDS ORDERED: LIDOCAINE 2% INJ 20 MG/ML (2 ML VIAL) ONE (11:37)
[2023-01-24] MEDS ORDERED: fentaNYL (PF) 50 MCG/ML 2 ML AMP ONE (11:37)
[2023-01-24] MEDS ORDERED: LACTATED RINGERS 1,000 ML IV ONE ×2 (11:42→13:46)
[2023-01-24 14:05] VITALS: TEMP 98.6
[2023-01-24 15:09] VITALS: BP 127/74; PULSE 54
--- NOTE | 2023-01-24 15:11 | FL ---
EXAMINATION TYPE: FL guidance operating room DATE OF EXAM: 01/24/2023 FLUOROSCOPY Fluoroscopy time of 34 seconds was used during cystoscopy and urologic intervention for bladder and l eft renal stones. 6 image/s document/s the procedure. Total DAP: 3.2
--- NOTE | 2023-02-01 15:27 | P.OP ---
Date of Procedure: 01/24/23 Preoperative Diagnosis: left renal stone, bladder stone Postoperative Diagnosis: Same Procedure(s) Performed: Cystoscopy, cystolitholapaxy (>2.5 cm stone burden), left-sided ureteroscopy, holmium laser lithotripsy, stone basketing and stent insertion Implants: 6-[place] by 26 cm stent in the left ureter or left on a string Anesthesia: ERNAA Surgeon: Romaine Cabrales Estimated Blood Loss (ml): 5 Pathology: other (bladder stone, left renal stone) Condition: stable Disposition: PACU Indications for Procedure: This is 57 yo male with hx of hyperparathyroidism, history of recurrent kidney and bladder stones more than 12 stones in the bladder . He's been having recurrent gross hematuria secondary to his bladder stones, option of cystolitholapaxy with left-sided ureteroscopy wit holmium laser to address his kidney stones at the same setting was discussed with him. Risk and benefit of surgery which includes but not limited to bleeding, infection, injury to the bladder, ureter, kidney. Of note he is also currently undergoing evaluation for his hyperparathyroidism and the plan is to proceed with parathyroidectomy [facility]. Risk of anesthesia was also discussed with him. He understood all the risk and agreed to proceed Operative Findings: Multiple large stones throughout the bladder, additionally 3 stones within a diverticulum. Large stone within the left upper pole Description of Procedure: Patient brought to the operating room, general anesthesia was induced. He was prepped and draped so fashion a placement dorsal lithotomy position. Cystoscopy fitted with a 21-[place] sheath was inserted per urethra, patient had trilobar hyperplasia with significant medial lobe with intravesical extension. Cystoscopy of the bladder showed multiple large stones within the bladder. Using the holmium laser the stones were fragmented, fragments were irrigated out. Additionally there was a diverticulum along the bladder dome, with evidence of 3 large stones within the diverticulum. The stones were grasped using a stone basket and removed into the bladder. Using the holmium laser the stones were fragmented. Repeat cystoscopy showed no sizable fragments within the bladder, or injury to the bladder. Attention was then carried to the left ureteral orifice which was intubated with a sensor wire. Next under fluoroscopy 1113 [place] access sheath was passed over the wire into the proximal ureter. The flexible ureteroscope was inserted through the access sheath, renoscopy was performed showed a large stone within the upper pole. Using the holmium laser the stone was dusted, sizable fragment were removed and sent for analysis. Repeat renoscopy showed no sizable fragments or injury to the kidney. On fluoroscopy there is no evidence of radiopaque densities. Pullback ureteroscopy was performed which showed no injury to the ureter or any ureteral stones. As the ureteroscope was withdrawn, a sensor wire was advanced through. Next ureteral stent was passed over the wire, the proximal curl was visualized using fluoroscopy and the distal curl was visualized using the cystoscope. The bladder was emptied at the end of the case. The stent was left on a string and taped the patient penis. Patient tolerated procedure well was taken to recovery in stable condition
== END 2023-01-24 15:49 | disposition home or self-care (01) ==
LOC: OR 10:20
PROVIDERS: ATTEND Urology
DX: N20.0 Calculus of kidney (principal); N21.0 Calculus in bladder; J45.909 Unspecified asthma, uncomplicated; Z87.891 Personal history of nicotine dependence; Z86.59 Personal history of other mental and behavioral disorders; Z83.3 Family history of diabetes mellitus; Z82.49 Family history of ischemic heart disease and other diseases of the circulatory system
CPT/HCPCS: 82365; 74018; 52356; C2625; C1769; J2250; J0330; J1100; J2405; J0690; J3010; J1170 ×2; J1885; J2704; J2001

== ENCOUNTER → 2023-02-11 | Outpatient (CLI) | payer OTHER | END | disposition home or self-care (01) | LOC: LABWHC1 14:08 | DX: E21.0 Primary hyperparathyroidism (principal) | CPT/HCPCS: 36415; 82310; 83970 ==

== ENCOUNTER → 2024-02-25 | Outpatient (CLI) | payer OTHER ==
--- NOTE | 2024-02-25 13:02 | FL ---
ESOPHOGRAM. HISTORY: Dysphagia Esophagram was performed per the air contrast technique. The patient swallowed barium and effervesce nt crystals without difficulty or delay. Esophageal peristalsis and motility appear to be within normal limits. There is no evidence for filling defect, mass or diverticulum. Very small reducible sliding type hiatal hernia. Subsequently single contrast cervical esophagram was performed which fails demonstrate evidence for a spiration penetration or mass. IMPRESSION: Very small reducible sliding type hiatal hernia.
== END | disposition home or self-care (01) ==
LOC: RADUSWWP 08:42
PROVIDERS: ATTEND Surgery
DX: K44.9 Diaphragmatic hernia without obstruction or gangrene (principal); R13.10 Dysphagia, unspecified
CPT/HCPCS: 74246

== ENCOUNTER 2024-02-27 08:46 | Day surgery (SDC) | payer OTHER ==
[2024-02-25 15:13] VITALS: BMI 29.9
[~2024-02-27 08:46] MED LIST changes: -DEXAMETHASONE SOD PHOSPHATE 4 MG/ML 1 ML VIAL IV ONE; -HYDROmorphone 0.5 MG/0.5 ML SYRINGE IVP PRN; -LACTATED RINGERS 1,000 ML IV SCH; -MIDAZOLAM 2 MG/2 ML VIAL IV PRN; -ONDANSETRON 4 MG/2 ML VIAL IVP ONE
[2024-02-27] MEDS: LACTATED RINGERS 1,000 ML IV SCH (10:08)
[2024-02-27] MEDS ORDERED: PROPOFOL 10 MG/ML 20 ML VIAL IV ONE (10:09)
[2024-02-27] MEDS ORDERED: LIDOCAINE 1% INJ 10MG/ML (20 ML MDV) ONE (10:09)
[2024-02-27 10:10] VITALS: TEMP 97.4
--- NOTE | 2024-02-27 10:30 | P.OP ---
Date of Procedure: 02/27/24 Preoperative Diagnosis: dysphagia Postoperative Diagnosis: antral gastritis Moderate size hiatal hernia Esophagitis Procedure(s) Performed: EGD Anesthesia: MAC Surgeon: Magno Rivers Pathology: other (antrum, esophagus) Condition: stable Disposition: PACU Description of Procedure: the patient's placed on the endoscopy table in the lateral position. He received IV sedation. The gastro-/oropharynx passed in the esophagus into the stomach. Scope was then placed through the pylorus. The first and second portion of the duodenum appeared normal. Scope was then brought back the antrum this appeared mildly inflamed. A biopsies was performed. The scope was then retroflexed and remainder the stomach appeared normal. There was a moderate size hiatal hernia. The GE junction was at 38 cm the distal esophagus appeared inflamed. This was biopsied the proximal esophagus appeared normal. Scope w ithdrawn for patient.
[2024-02-27 10:51] VITALS: RESP 16
[2024-02-27 11:33] VITALS: BP 124/72; PULSE 70
== END 2024-02-27 11:11 | disposition home or self-care (01) ==
LOC: ORWHC2ENDO 08:46
PROVIDERS: ATTEND Surgery
DX: K29.50 Unspecified chronic gastritis without bleeding (principal); K31.89 Other diseases of stomach and duodenum; K20.90 Esophagitis, unspecified without bleeding; K44.9 Diaphragmatic hernia without obstruction or gangrene; J45.909 Unspecified asthma, uncomplicated; N40.0 Benign prostatic hyperplasia without lower urinary tract symptoms; Z87.891 Personal history of nicotine dependence; Z91.048 Other nonmedicinal substance allergy status; Z79.899 Other long term (current) drug therapy
CPT/HCPCS: 88305; 88342; 43239; J2001; J2704

== ENCOUNTER 2024-05-11 07:00 | Day surgery (SDC) | payer OTHER ==
[2024-05-06 09:40] VITALS: BMI 29.9
[2024-05-11] MEDS: IV FLUID CONTINUATION 1,000 ML IV ONE ×2 (07:22→07:34)
[2024-05-11 07:24] VITALS: TEMP 98
[2024-05-11] MEDS: LACTATED RINGERS 1,000 ML IV SCH (07:24)
[2024-05-11] MEDS ORDERED: PROPOFOL 10 MG/ML 20 ML VIAL IV ONE (07:35)
--- NOTE | 2024-05-11 07:41 | P.GSHP ---
History of Present Illness H&P Date: 05/11/24 Chief Complaint: GERD this is a 4-year-old male with history of GERD and dysphagia. Patient has been on antireflux medication therapy. Patient presents today for EGD. Past Medical History Past Medical History: Asthma, Prostate Disorder Additional Past Medical History / Comment(s): SEASONAL ALLERGIES. Enlarged prostate. History of Any Multi-Drug Resistant Organisms: None Reported Past Surgical History: No Surgical Hx Reported Additional Past Surgical History / Comment(s): Left ureteral stent and lithotripsy., EGD, PARATHYROIDECTOMY, Past Anesthesia/Blood Transfusion Reactions: No Reported Reaction Smoking Status: Former smoker - Past Family History Mother Family Medical History: Diabetes Mellitus Father Family Medical History: Coronary Artery Disease (CAD) Medications and Allergies Home Medications Medication Instructions Recorded Confirmed Type Tamsulosin [Flomax] 0.4 mg PO DAILY #7 cap 03/05/21 05/06/24 Rx Acetaminophen [Tylenol Arthritis] 650 mg PO DIRECTED PRN 02/25/24 05/06/24 History Omeprazole 40 mg PO DAILY #90 cap 02/27/24 05/06/24 Rx Fexofenadine/Pseudoephedrine 1 tab PO DAILY 05/06/24 05/06/24 History [Ami-D 24 Hour Tablet] Allergies Allergy/AdvReac Type Severity Reaction Status Date / Time No Known Allergies Allergy Verified 05/06/24 09:33 Surgical - Exam Vital Signs Temp Pulse Resp BP Pulse Ox 98 F 70 18 140/81 99 05/11/24 07:23 05/11/24 07:23 05/11/24 07:23 05/11/24 07:23 05/11/24 07:23 - General well developed, well nourished, no distress - Eyes PERRL - ENT normal pinna - Neck no masses - Respiratory normal expansion - Cardiovascular Rhythm: regular Abnormal Heart Sounds: systolic murmur - Abdomen Abdomen: soft, non tender Assessment and Plan Assessment: GERD, history of hiatal hernia. We'll perform EGD.
--- NOTE | 2024-05-11 07:47 | P.OP ---
Date of Procedure: 05/11/24 Preoperative Diagnosis: GERD Postoperative Diagnosis: small sliding hiatal hernia Mild esophagitis Mild distress Procedure(s) Performed: EGD Anesthesia: MAC Surgeon: Magno Rivers Pathology: other (antrum, esophagus) Condition: stable Disposition: PACU Description of Procedure: the patient's placed on the endoscopy table in the lateral position. He received IV sedation. The gastroscope placed oropharynx passed in the esophagus and the stomach. The scope was then placed through the pylorus. The first and second portion of the duodenum appeared normal. Scope summer back the antrum was inflamed. A biopsies performed. Scope was then retroflexed and the remainder of the stomach appeared normal. The patient had a small sliding hiatal hernia. The GE junction was at 38 cm. The distal esophagus was minimal inflamed. This is much improved compared to his previous EGD. The proximal esophagus appeared normal. A biopsy the distal esophagus was performed. Scope was withdrawn for patient.
[2024-05-11 08:09] VITALS: RESP 20
[2024-05-11 08:35] VITALS: BP 130/88; PULSE 64
== END 2024-05-11 08:53 | disposition home or self-care (01) ==
LOC: ORWHC2ENDO 07:00
PROVIDERS: ATTEND Surgery
DX: K29.50 Unspecified chronic gastritis without bleeding (principal); K21.00 Gastro-esophageal reflux disease with esophagitis, without bleeding; K44.9 Diaphragmatic hernia without obstruction or gangrene; J45.909 Unspecified asthma, uncomplicated; N40.0 Benign prostatic hyperplasia without lower urinary tract symptoms; Z87.891 Personal history of nicotine dependence; Z79.899 Other long term (current) drug therapy; Z98.890 Other specified postprocedural states
CPT/HCPCS: 43239; J2704; 88305

== ENCOUNTER → 2024-12-21 | Outpatient (CLI) | payer OTHER ==
--- NOTE | 2024-12-21 08:26 | MR ---
EXAMINATION TYPE: MR Prostate wo/w con DATE OF EXAM: 12/21/2024 6:55 AM COMPARISON: None. CLINICAL INDICATION: Male, 59 years old with history of R97.20 ELEVATED PSA; Elevated PSA. TECHNIQUE: Multi-planar, multi-sequence imaging of the pelvis is performed prior to and following the uncomplicated administration of bolus intravenous gadolinium. IV Contrast: 11 mL Gadobutrol Interpretive Criteria: PI-RADS v2.1 SERUM PSA: 11-16-24 = 9.42 10-28-23 = 4.97 SURGICAL PATHOLOGY: No data available. FINDINGS: Prostatic dimensions: 6.8 x 7.0 x 4.1 cm. Ellipsoid Volume:102.19 (PSA density=0.09 ng/mL/mL) CENTRAL GLAND (Central and Transition Zones/CZ+TZ): Multiple bilateral, heterogenous appearing hypertrophic stromal nodules, without suspicious lesion. M edian lobe hypertrophy with protrusion into the base of the bladder. (PI-RADS 2) PERIPHERAL ZONE (PZ): Bilateral linear, indistinct wedgelike areas of low ADC, and low T2 signal, No evidence of masslike a bnormality, or localized perfusional hypervascularity, to further suggest a focus of clinically signi ficant prostate cancer. (PI-RADS 2) SEMINAL VESICLES (SV): Symmetric and unremarkable. PERIPROSTATIC TISSUES: Unremarkable. LYMPH NODES: No enlarged pelvic lymph node. REMAINING PELVIS: Bladder wall is within normal limits given distention. There are multiple low-density lesions layerin g in the bladder lumen 1 within diverticula. No abnormal free or organized intrapelvic fluid collection. No pathologic bowel dilation or mural thickening. No hernia visualized OSSEOUS STRUCTURES: No suspicious osseous abnormality. IMPRESSION: 1. No specific features for high-risk prostate cancer. Maximum PI-RADS score: 2. 2. Substantial BPH, estimated gland volume 102.19 mL. 3. No suspicious osseous lesion. No lymphadenopathy. No evidence of prostate adenocarcinoma involving the periprostatic tissues. 4. Multiple suspected bladder stones 1 which may be in the right lateral bladder wall diverticula. [facility], , 12/21/2024 8:24 AM
== END | disposition home or self-care (01) ==
LOC: RADMRIMAIN 05:59
PROVIDERS: ATTEND Urology
DX: N40.0 Benign prostatic hyperplasia without lower urinary tract symptoms (principal); R97.20 Elevated prostate specific antigen [PSA]
CPT/HCPCS: 72197; A9585